=== PATIENT | female | born 1945 | race Caucasian/White ===

== ENCOUNTER → 2017-01-20 | Outpatient (CLI) | payer BC ==
[2016-09-19 11:15] VITALS: BP 119/77
[~2017-01-20] MED LIST: AMIT25TA PO; AMIT75TA PO; ASPI81TA2 PO; BUPR100T11 PO; CARV3.122 PO; CHOL500016 PO; CITA10TA4 PO; CYAN10002 IM; CYCL5TAB PO; GABA-586 PO; HYDR-2672 PO; HYDR-2762 PO; INSULIN; LEVO137T3 PO; LEVO175T29 PO; LEVO750T31; LISI-334 PO; MULT1TAB52 PO; NPH,100V SQ; OXYB5TAB7 PO; SULF1TAB23 PO; TEMA30CA PO; TRIM100T PO
--- NOTE | 2017-01-20 14:49 | KCIC ---
PROCEDURE Renal sonography HISTORY Acute cystitis. COMPARISON December 02, 2014. FINDINGS Due to the patient's very large body habitus, neither kidney could be visualized. The urinary bladder could not be visualized as well. IMPRESSION Neither kidney or the urinary bladder could be visualized due to the patient's very large body habitus. Electronically signed by: Elkin De La Fuente MD (Jan 20, 2017 14:47:49)
== END | disposition home or self-care (01) ==
LOC: KCIC US 13:56
PROVIDERS: ATTEND Urology
DX: N30.00 Acute cystitis without hematuria (principal)
CPT/HCPCS: 76770

== ENCOUNTER → 2017-02-04 | Outpatient (CLI) | payer BC ==
[2016-09-19 11:15] VITALS: BP 119/77
[~2017-02-04] MED LIST changes: -TRIM100T PO; +TRIM100T13 PO
--- NOTE | 2017-02-04 11:00 | RAD ---
Indication: Follow-up lithotripsy. Axial imaging through the abdomen and pelvis was performed without contrast. Comparison is made with prior CT from 07/22/2016. The lung bases are clear. The liver again demonstrates a somewhat nodular contour but no discrete liver mass is identified. The gallbladder is mildly dilated but no stones or wall thickening are identified. The pancreas is atrophic. The spleen is unremarkable. No adrenal mass is identified. The exophytic lesion arising from the lower pole of the right kidney appears stable. Multiple bilateral nonobstructing renal calculi are again noted. Dominant calculus on the right appears similar measuring 13 mm. The calculi on the left also appears similar, largest in the lower pole measuring approximately 8 mm. The previously noted ureteral calculi on the prior exam are no longer present. No hydronephrosis is detected. The aorta is nonaneurysmal. The small and large bowel loops are normal caliber. There is an ostomy in the right lower quadrant. No ascites is seen. Impression: Bilateral nonobstructing nephrolithiasis, similar to prior exam. Previously noted ureteral calculi are no longer present. No hydroureteronephrosis is seen. PQRS Compliance Statement: One or more of the following individualized dose reduction techniques were utilized for this examination: 1. Automated exposure control 2. Adjustment of the mA and/or kV according to patient size 3. Use of iterative reconstruction technique
== END | disposition home or self-care (01) ==
LOC: CT 17:28
PROVIDERS: ATTEND Urology
DX: N20.0 Calculus of kidney (principal)
CPT/HCPCS: 74176

== ENCOUNTER 2018-01-07 12:27 | Day surgery (SDC) | payer BC ==
[~2018-01-07 12:27] MED LIST changes: +0.9 % SODIUM CHLORIDE 50 ML VIAL. IJ; -AMIT25TA PO; -AMIT75TA PO; -ASPI81TA2 PO; -BUPR100T11 PO; -CARV3.122 PO; -CHOL500016 PO; -CITA10TA4 PO; -CYAN10002 IM; -CYCL5TAB PO; -GABA-586 PO; -HYDR-2672 PO; -HYDR-2762 PO; -INSULIN; -LEVO137T3 PO; -LEVO175T29 PO; -LEVO750T31; +LIDOCAINE 1% PF 2 ML VIAL. ID; +LIDOCAINE 2% JELLY 6ML IN APPLICATOR.; -LISI-334 PO; +MORPHINE SULFATE 4 MG/ML DISP.SYRIN. IV; -MULT1TAB52 PO; -NPH,100V SQ; +ONDANSETRON PF 4 MG/2 ML VIAL. IV; -OXYB5TAB7 PO; +PROCHLORPERAZINE 10 MG/2 ML VIAL. IV; -SULF1TAB23 PO; -TEMA30CA PO; -TRIM100T13 PO; +fentaNYL PF VIAL 100 MCG/2 ML VIAL IV
[2018-01-07] MEDS ORDERED: SEVOFLURANE 61 TO 120 MINUTES. IH (13:07)
[2018-01-07] MEDS ORDERED: fentaNYL PF VIAL 100 MCG/2 ML VIAL (13:07)
[2018-01-07] MEDS ORDERED: MIDAZOLAM HCL/PF 2 MG/2 ML VIAL. (13:08)
[2018-01-07] MEDS ORDERED: ONDANSETRON PF 4 MG/2 ML VIAL. (13:09)
[2018-01-07] MEDS ORDERED: DEXAMETHASONE SOD PHOS 20 MG/5 ML VIAL. (13:09)
[2018-01-07] MEDS ORDERED: PROPOFOL 20 ML IV (13:09)
[2018-01-07] MEDS: IV RINGERS,LACTATED 1000ML 1,000 ML IV (14:00)
[2018-01-07] MEDS: IOHEXOL 300 MG/ML 100ML VIAL. (14:02)
[2018-01-07] MEDS: CIPROFLOXACIN 400MG PREMIX 200 ML IV (14:16)
[2018-01-07 15:07] LABS: POC GLUCOSE 108 mg/dL (70-99)
[2018-01-07] MEDS: oxyCODONE/APAP 10/325 1 TAB TABLET PO (15:34)
[2018-01-09 08:04] LABS: POC GLUCOSE 112 mg/dL (70-99)
== END 2018-01-07 16:26 | disposition home or self-care (01) ==
LOC: SURG 12:27
DX: N20.1 Calculus of ureter (principal); E11.9 Type 2 diabetes mellitus without complications; I10 Essential (primary) hypertension; E89.0 Postprocedural hypothyroidism; Z98.890 Other specified postprocedural states
CPT/HCPCS: 52332; 76000; 82962; C1769; C2617; J0744; J1100; J2250; J2405; J2704; J3010; Q9967

== ENCOUNTER → 2018-01-21 | Outpatient (CLI) | payer BC | END | disposition home or self-care (01) | LOC: RAD 13:42 | DX: N20.0 Calculus of kidney (principal); Z87.442 Personal history of urinary calculi | CPT/HCPCS: 74018 ==

== ENCOUNTER 2018-11-01 14:57 | Inpatient (IN) | payer BC ==
[~2018-11-01] VITALS: Ht 172.7 cm; Wt 118.8 kg
[~2018-11-01 14:57] MED LIST changes: -0.9 % SODIUM CHLORIDE 50 ML VIAL. IJ; +A RED PO; +AMIT25TA PO; +AMIT75TA PO; +ASPI-630 PO; +BUPR100T11 PO; +CARV3.1210 PO; +CARV6.2511 PO; +CHOL500016 PO; +CITA10TA4 PO; +CYAN10002 IM; +CYCL5TAB PO; +GABA300C18 PO; +HYDR-2765 PO; +HYDR-2769 PO; +HYDR-3135 PO; +INSULIN; +LEVO137T3 PO; +LEVO150T5 PO; +LEVO175T29 PO; +LEVO750T31; -LIDOCAINE 1% PF 2 ML VIAL. ID; -LIDOCAINE 2% JELLY 6ML IN APPLICATOR.; +LISI-334 PO; -MORPHINE SULFATE 4 MG/ML DISP.SYRIN. IV; +MULT1TAB52 PO; +NPH,100V SQ; +NPH,100V5 SQ; -ONDANSETRON PF 4 MG/2 ML VIAL. IV; +OXYB5TAB7 PO; -PROCHLORPERAZINE 10 MG/2 ML VIAL. IV; +SULF1TAB23 PO; +SULF1TAB24 PO; +TAMS0.4C97 PO; +TEMA30CA PO; +TRIM100T13 PO; -fentaNYL PF VIAL 100 MCG/2 ML VIAL IV
[2018-11-01 16:11] LABS: BILIRUBIN,URINE NEGATIVE (NEG); CLARITY,URINE TURBID; COLOR,URINE YELLOW; NITRITE,URINE NEGATIVE (NEG); PROTEIN,URINE 100 mg/dL (NEG-TRACE); UROBILINOGEN,URINE 0.2 mg/dL (0.2 mg/dL)
[2018-11-01 16:25] LABS: WBC,URINE TNTC /HPF (0-4)
[2018-11-01 16:28] LABS: SQUAMOUS EPITHELIAL CELL,UR OCC /LPF
[2018-11-01 16:33] LABS: AMORPHOUS SEDIMENT,UR PRESENT /HPF; BACTERIA,URINE FEW /HPF (0-FEW)
[2018-11-01 17:13] LABS: BASO # 0.1 x10^3/uL (0.0-0.2); BASO % 1 % (0-3); EOS # 0.2 x10^3/uL (0.0-0.7); EOS % 3 % (0-3); HEMATOCRIT 40.2 % (36.0-47.0); HEMOGLOBIN 13.5 g/dL (12.0-15.5); LYMPH # 1.4 x10^3/uL (1.0-4.8); LYMPH % 26 % (24-48); MEAN CORPUSCULAR HEMOGLOBIN 32 pg (25-35); MEAN CORPUSCULAR HGB CONC 34 g/dL (31-37); MEAN CORPUSCULAR VOLUME 94 fL (79-100); MONO # 0.7 x10^3/uL (0.0-1.1); MONO % 12 % (0-9); NEUT # 3.1 x10^3uL (1.8-7.7); NEUT % 58 % (31-73); PLATELET COUNT 200 x10^3/uL (140-400); RED BLOOD COUNT 4.26 x10^6/uL (3.50-5.40); RED CELL DISTRIBUTION WIDTH 14.2 % (11.5-14.5); WHITE BLOOD COUNT 5.3 x10^3/uL (4.0-11.0)
[2018-11-01 17:19] LABS: CALCIUM 10.9 mg/dL (8.5-10.1); CREATININE 1.4 mg/dL (0.6-1.0); GFR 37.1; POTASSIUM 4.6 mmol/L (3.5-5.1)
[2018-11-01] MEDS ORDERED: CIPROFLOXACIN 400MG PREMIX 200 ML IV ONE (17:45)
[2018-11-01] MEDS ORDERED: PIPERACILLIN/TAZOBACTAM 3.375 GM in IV NORMAL SALINE 50ML 50 ML IV ONE (18:00)
[2018-11-01] MEDS ORDERED: CHOL100016 PO (18:43)
[2018-11-01] MEDS ORDERED: ALPR1TAB6 PO (18:43)
[2018-11-01] MEDS ORDERED: SOLI10TA2 PO (18:43)
[2018-11-01] MEDS ORDERED: TEMAZEPAM 15 MG CAPSULE PO PRN (18:45)
[2018-11-01 19:00] VITALS: BP 115/53
--- NOTE | 2018-11-01 19:55 | PHYS DOC ---
Past Medical History Past Medical History: Diabetes-Type II, Hypertension Additional Past Medical Histor: illeostomy- colitis, sciatica, chronic back pain, neuropathy (RUPERT RANGEL APRN) Past Surgical History: Colectomy, Other Additional Past Surgical Histo: thyroidectomy, illeostomy with revision (RUPERT RANGEL APRN) Alcohol Use: Rarely Drug Use: None (RUPERT RANGEL APRN) Adult General Chief Complaint Chief Complaint: URINARY FREQUENCY [facility] HPI Patient is a 72 year old female, accompanied by her , with complaints of continued dysuria, urinary frequency, and incontinence after finishing macrodantin last week for a UTI. Pt denies any abdominal pain, hematuria, back pain, fever, nausea, vomiting, or diarrhea. Pt states she has a urologist at [facility] who has evaluated her and diagnosed her with a normal sized bladder and a leaky urethra. Pt states she is supposed to have surgery at [facility] in December to correct this problem. Pt also denies any cough, shortness of breath, or swelling in extremities. She reports concern about skin breakdown from the incontinence because in the past she has developed bed sores. Pt has a colostomy bag in the RLQ, she denies any problems with her bag. (RUPERT RANGEL APRN) Review of Systems Review of Systems Constitutional: Denies fever or chills [] HENT: Denies nasal congestion or sore throat [] Respiratory: Denies cough or shortness of breath [] Cardiovascular: No additional information not addressed in HPI [] GI: Denies abdominal pain, nausea, vomiting, or diarrhea [] : See HPI Musculoskeletal: Denies back pain or joint pain [] Integument: See HPI Neurologic: Denies headache, focal weakness or sensory changes [] Endocrine: Denies polydipsia, reports polyuria Complete systems were reviewed and found to be within normal limits, except as documented in this note. (RUPERT RANGEL APRN) Allergies Allergies Allergies Coded Allergies Type Severity Reaction Last Updated Verified cephalexin Adverse Reaction Intermediate VERY ILL-N/V,DIARRHEA ETC. 01/07/18 Yes propoxyphene Adverse Reaction Intermediate nausea and vomiting 01/07/18 Yes (CATRACHO CHRISTINA DO) Physical Exam Physical Exam Constitutional: Well developed, well nourished, no acute distress, non-toxic appearance, obese. [] HENT: Normocephalic, atraumatic, bilateral external ears normal, oropharynx moist, no oral exudates, nose normal. [] Eyes: conjunctiva normal, no discharge. [] Neck: Normal range of motion, no stridor. [] Cardiovascular:Heart rate regular rhythm, no murmur [] Lungs & Thorax: Bilateral breath sounds clear to auscultation [] Abdomen: Bowel sounds normal, soft, no tenderness, no masses, no pulsatile masses. [] Skin: Warm dry with exception of genitalia and beneath pannus; mild erythema without open sores noted in bilateral groins, perineum, and beneath pannus Back: no CVA tenderness. [] Extremities: No cyanosis, no clubbing, ROM intact, no edema. [] Neurologic: Alert and oriented X 3, normal motor function, normal sensory function, no focal deficits noted. [] Psychologic: Affect normal, judgement normal, mood normal. [] (RUPERT RANGEL APRN) Current Patient Data Vital Signs Vital Signs Date Time Temp Pulse Resp B/P (MAP) Pulse Ox O2 Delivery O2 Flow Rate FiO2 11/01/18 15:16 97.8 73 18 157/73 (101) 96 Room Air 97.8 (CHRISTINA,CATRACHO R DO) Lab Values Laboratory Tests Test 11/01/18 15:55 11/01/18 17:00 Urine Collection Type Unknown Urine Color Yellow Urine Clarity Turbid Urine pH 6.0 Urine Specific [place] 1.010 Urine Protein 100 mg/dL (NEG-TRACE) Urine Glucose (UA) Negative mg/dL (NEG) Urine Ketones (Stick) Negative mg/dL (NEG) Urine Blood Large (NEG) Urine Nitrite Negative (NEG) Urine Bilirubin Negative (NEG) Urine Urobilinogen Dipstick 0.2 mg/dL (0.2 mg/dL) Urine Leukocyte Esterase Large (NEG) Urine RBC /HPF (0-2) Urine WBC Tntc /HPF (0-4) Urine Squamous Epithelial Cells Occ /LPF Urine Amorphous Sediment Present /HPF Urine Bacteria Few /HPF (0-FEW) White Blood Count 5.3 x10^3/uL (4.0-11.0) Red Blood Count 4.26 x10^6/uL (3.50-5.40) Hemoglobin 13.5 g/dL (12.0-15.5) Hematocrit 40.2 % (36.0-47.0) Mean Corpuscular Volume 94 fL (79-100) Mean Corpuscular Hemoglobin 32 pg (25-35) Mean Corpuscular Hemoglobin Concent 34 g/dL (31-37) Red Cell Distribution Width 14.2 % (11.5-14.5) Platelet Count 200 x10^3/uL (140-400) Neutrophils (%) (Auto) 58 % (31-73) Lymphocytes (%) (Auto) 26 % (24-48) Monocytes (%) (Auto) 12 % (0-9) H Eosinophils (%) (Auto) 3 % (0-3) Basophils (%) (Auto) 1 % (0-3) Neutrophils # (Auto) 3.1 x10^3uL (1.8-7.7) Lymphocytes # (Auto) 1.4 x10^3/uL (1.0-4.8) Monocytes # (Auto) 0.7 x10^3/uL (0.0-1.1) Eosinophils # (Auto) 0.2 x10^3/uL (0.0-0.7) Basophils # (Auto) 0.1 x10^3/uL (0.0-0.2) Sodium Level 140 mmol/L (136-145) Potassium Level 4.6 mmol/L (3.5-5.1) Chloride Level 104 mmol/L (98-107) Carbon Dioxide Level 25 mmol/L (21-32) Anion Gap 11 (6-14) Blood Urea Nitrogen 21 mg/dL (7-20) H Creatinine 1.4 mg/dL (0.6-1.0) H Estimated GFR (Cockcroft-Gault) 37.1 Glucose Level 115 mg/dL (70-99) H Calcium Level 10.9 mg/dL (8.5-10.1) H Laboratory Tests 11/01/18 17:00 Laboratory Tests 11/01/18 17:00 (CATRACHO CHRISTINA DO) EKG EKG [] (RUPERT RANGEL APRN) Radiology/Procedures Radiology/Procedures [] (RUPERT RANGEL APRN) Course & Med Decision Making Course & Med Decision Making Pertinent Labs and Imaging studies reviewed. (See chart for details) Dx: UTI, chronic kidney disease CBC - BMP 11/01/18 17:00 Zosyn 3.375 gm was ordered in the ER. Pt was advised of continued UTI that failed to respond to outpatient treatment and need for hospital admission. Pt verbalized agreement with POC 1702- Spoke with Dr. Vyas and advised of patient findings and need for admission. Will start antibiotics and admit patient to med/surg bed. [] (RUPERT RANGEL APRN) Dragon Disclaimer Dragon Disclaimer This electronic medical record was generated, in whole or in part, using a voice recognition dictation system. (RUPERT RANGEL APRN) Departure Departure Impression: Primary Impression: UTI (urinary tract infection) Additional Impression: Chronic kidney disease, stage 3 Disposition: ADMITTED INPATIENT Admitting Physician: Miguel Vyas (RUPERT RANGEL APRN) Condition: STABLE Referrals: TANA JACOBS MD (PCP) Scripts Sulfamethoxazole/Trimethoprim (BACTRIM DS TABLET) 1 Each Tablet 1 TAB PO BID for UTI, #14 TAB Prov: MIGUEL VYAS MD 11/02/18 Attending Signature Attending Signature I have reviewed the PA/SOLAR INSTALLER PV's note and plan of care. I was available for consultation as needed during the patient's visit in the emergency department. I agree with the clinical impression, plan, and disposition. (CATRACHO CHRISTINA DO) Problem Qualifiers Primary Impression: UTI (urinary tract infection) Urinary tract infection type: site unspecified Hematuria presence: with hematuria Qualified Codes: N39.0 - Urinary tract infection, site not specified ; R31.9 - Hematuria, unspecified RUPERT RANGEL APRN Nov 01, 2018 19:55 CATRACHO CHRISTINA DO Nov 03, 2018 05:09
[2018-11-01] MEDS: ALPRAZolam 1 MG TABLET PO SCH (21:16)
[2018-11-01] MEDS: OXYBUTYNIN CHLORIDE 5 MG TABLET PO SCH (21:16)
[2018-11-01 23:00] VITALS: BP 132/66
[2018-11-02 03:00] VITALS: BP 127/56
[2018-11-02] MEDS ORDERED: ACETAMINOPHEN 325 MG TABLET. PO PRN (03:30)
[2018-11-02] MEDS ORDERED: HYDROcodone/APAP 5/325MG 1 TAB TABLET PO PRN (03:30)
[2018-11-02] MEDS ORDERED: LEVOTHYROXINE 150 MCG TABLET PO SCH (06:00)
[2018-11-02 06:34] LABS: CALCIUM 9.6 mg/dL (8.5-10.1); CREATININE 1.6 mg/dL (0.6-1.0); GFR 31.8; POTASSIUM 4.2 mmol/L (3.5-5.1)
[2018-11-02 07:00] VITALS: BP 126/67
[2018-11-02] MEDS ORDERED: INSULIN GLARGINE 300 UNITS/3 ML INSULN.PEN. SQ SCH (07:30)
[2018-11-02] MEDS ORDERED: CARVEDILOL 6.25 MG TABLET. PO SCH (08:00)
--- NOTE | 2018-11-02 08:10 | PDOC1 ---
H & P. HPI: Ms. Hough is a 72-year-old female with a past medical history of type 2 diabetes, chronic kidney disease stage III, hypertension, hypothyroidism, recurrent UTI, kidney stones, lumbar spinal stenosis, who presented to the emergency room yesterday for concern of continued UTI despite recent treatment with antibiotics. She was reportedly going to have an appointment with urology at today but decided to come to [place] [facility] instead. She complains of dysuria, urinary frequency, and incontinence which was reportedly after a recent course of antibiotics, but when pt was asked again, she states she took 5 days of macrodantin over 4 weeks ago, most recently. Pt denies any abdominal pain, hematuria, back pain, fever, nausea, vomiting, or diarrhea. ROS: Constitutional: Denies fever, fatigue, chills HEENT: Denies sore throat, vision changes Cardio: Denies chest pain, dyspnea with exertion, syncope, palpitations, edema Pulmonary: Denies shortness of breath, cough, wheezing GI: Denies nausea, vomiting, diarrhea, constipation : Admits dysuria, frequency, urgency, incontinence Skin: Denies new lesions Neuro: Denies weakness, paresthesias PMH: As above. FAMILY HX: Father from heart attack, hypertension, emphysema. Mother had heart disease. Brother had a stroke. SOCIAL HX: Nonsmoker, no significant alcohol use. No drug use. SURGICAL HX: Oophorectomy, multiple hernia surgeries, ileostomy, appendectomy, tonsillectomy. MEDS: Reviewed and reconciled ALLERGIES: Reviewed PE: Alert, oriented, no acute distress EOMI, sclera non-icteric Neck supple RRR, no murmur CTAB, no wheezes, crackles or rhonchi Soft, NT, ND, normal bowel sounds, s/p ileostomy No edema, cyanosis. Normal capillary refill. Calm, cooperative, mood/affect within normal limits ASSESSMENT & PLAN: Urinary tract infection with hematuria, uncomplicated Chronic kidney disease stage III at baseline Type 2 diabetes Hypertension Hypothyroidism H/o Kidney stones Lumbar spinal stenosis OK to dc home with PO antibiotics, change if indicated per urine culture f/u soon with urology f/u with myself or Dr. Branch in ~10 days MIGUEL LEONE MD Nov 02, 2018 08:10
[2018-11-02] MEDS ORDERED: PIPERACILLIN/TAZOBACTAM 3.375 GM in IV NORMAL SALINE 50ML 50 ML IV SCH (08:30)
[2018-11-02] MEDS: ALPRAZolam 1 MG TABLET PO SCH (08:37)
[2018-11-02] MEDS: OXYBUTYNIN CHLORIDE 5 MG TABLET PO SCH (08:37)
[2018-11-02] MEDS ORDERED: CHOLECALCIFEROL (VITAMIN D3) 1,000 UNIT TABLET PO SCH (09:00)
[2018-11-02] MEDS ORDERED: LACTOBACILLUS RHAMNOSUS GG 1 CAPSULE. PO SCH (09:00)
[2018-11-02] MEDS ORDERED: ASPIRIN CHEWABLE 81 MG TABLET. PO SCH (09:00)
[2018-11-02] MEDS ORDERED: MULTIVITAMIN with MINERAL TABLET. PO SCH (09:00)
[2018-11-02] MEDS ORDERED: SULF1TAB24 PO (09:06)
[2018-11-02 11:00] VITALS: BP 141/51
[2018-12-01] MEDS ORDERED: CYANOCOBALAMIN (VITAMIN B-12) 1,000 MCG/ML VIAL IM SCH (09:00)
== END 2018-11-02 11:15 | disposition home or self-care (01) | DRG 690 ==
LOC: ER 14:57 → 5 NORTH 17:02
PROVIDERS: ADMIT Family Medicine; ATTEND Family Medicine
DX: N39.0 Urinary tract infection, site not specified (principal); I10 Essential (primary) hypertension; G89.29 Other chronic pain; R31.9 Hematuria, unspecified; E11.22 Type 2 diabetes mellitus with diabetic chronic kidney disease; E89.0 Postprocedural hypothyroidism; E11.40 Type 2 diabetes mellitus with diabetic neuropathy, unspecified; M48.061 Spinal stenosis, lumbar region without neurogenic claudication; I12.9 Hypertensive chronic kidney disease with stage 1 through stage 4 chronic kidney disease, or unspecified chronic kidney disease; N18.3 Chronic kidney disease, stage 3 (moderate); Z93.3 Colostomy status; Z79.4 Long term (current) use of insulin; Z88.8 Allergy status to other drugs, medicaments and biological substances; Z87.442 Personal history of urinary calculi
CPT/HCPCS: 36415; 51702; 80048; 81001; 82962; 85025; 87086; 90471; 90756; J1815; J2543; 99285-25; G0378; Q2035

== ENCOUNTER 2018-11-07 12:49 | Inpatient (IN) | payer BC ==
[~2018-11-07] VITALS: Ht 172.7 cm; Wt 124.3 kg
[~2018-11-07 12:49] MED LIST changes: +ALPR1TAB6 PO; +CHOL100016 PO; +SOLI10TA2 PO
[2018-11-07 13:32] LABS: BILIRUBIN,URINE NEGATIVE (NEG); CLARITY,URINE CLOUDY; COLOR,URINE ORANGE; NITRITE,URINE POSITIVE (NEG); PH,URINE 5.5; PROTEIN,URINE 100 mg/dL (NEG-TRACE)
[2018-11-07] MEDS ORDERED: IV NORMAL SALINE 1000ML BAG 1,000 ML IV SCH (13:41)
[2018-11-07] MEDS ORDERED: ONDANSETRON PF 4 MG/2 ML VIAL. IV ONE (13:45)
[2018-11-07] MEDS ORDERED: HYDROmorphone 2 MG/ML VIAL IV/SQ PRN (13:45)
[2018-11-07 13:46] LABS: SQUAMOUS EPITHELIAL CELL,UR OCC /LPF
[2018-11-07 13:47] LABS: BACTERIA,URINE MODERATE /HPF (0-FEW); WBC,URINE >40 /HPF (0-4)
[2018-11-07 13:50] LABS: BASO # 0.1 x10^3/uL (0.0-0.2); BASO % 1 % (0-3); EOS # 0.2 x10^3/uL (0.0-0.7); EOS % 3 % (0-3); HEMATOCRIT 41.5 % (36.0-47.0); HEMOGLOBIN 13.7 g/dL (12.0-15.5); LYMPH # 1.2 x10^3/uL (1.0-4.8); LYMPH % 17 % (24-48); MEAN CORPUSCULAR HEMOGLOBIN 32 pg (25-35); MEAN CORPUSCULAR HGB CONC 33 g/dL (31-37); MEAN CORPUSCULAR VOLUME 96 fL (79-100); MONO # 0.8 x10^3/uL (0.0-1.1); MONO % 11 % (0-9); NEUT # 4.7 x10^3uL (1.8-7.7); NEUT % 68 % (31-73); PLATELET COUNT 219 x10^3/uL (140-400); RED BLOOD COUNT 4.33 x10^6/uL (3.50-5.40); RED CELL DISTRIBUTION WIDTH 14.1 % (11.5-14.5)
--- NOTE | 2018-11-07 13:54 | PHYS DOC ---
Past Medical History Past Medical History: Diabetes-Type II, Hypertension, UTI, Other Additional Past Medical Histor: colitis, sciatica, chronic back pain, neuropathy Past Surgical History: Colectomy, Other Additional Past Surgical Histo: thyroidectomy, illeostomy with revision Alcohol Use: Rarely Drug Use: None Adult General Chief Complaint Chief Complaint: FLANK PAIN [facility] HPI Patient is a 72-year-old female who presents with complaint of left-sided flank pain that started yesterday. Patient has a long history of kidney stones. She states that she has had a history of pain in this area before and states that she was told that she had a stone that was bobbing up and down and blocking her ureter intermittently. She states the pain has been more constant however. She rates pain currently at an 8 out of 10 in indicates that she has had some nausea but no vomiting. Patient states that nothing is improving the pain. Review of Systems Review of Systems Constitutional: Denies fever or chills [] Respiratory: Denies cough or shortness of breath [] Cardiovascular: No additional information not addressed in HPI [] GI: Denies abdominal pain, nausea, vomiting or diarrhea [] : Positive left flank pain [] Musculoskeletal: Complains of left-sided back pain [] All other systems were reviewed and found to be within normal limits, except as documented in this note. Current Medications Current Medications Current Medications Medications (Trade) Dose Ordered Sig/Evan Start Time Stop Time Status Last Admin Dose Admin Hydromorphone HCl (Dilaudid) 0.5 mg PRN Q15MIN PRN 11/07/18 13:45 11/08/18 13:44 11/07/18 14:23 0.5 MG Ondansetron HCl (Zofran) 4 mg 1X ONCE 11/07/18 13:45 11/07/18 13:46 DC 11/07/18 14:21 4 MG Sodium Chloride 1,000 ml @ 100 mls/hr Q10H 11/07/18 13:41 11/07/18 23:40 11/07/18 14:20 100 MLS/HR Allergies Allergies Allergies Coded Allergies Type Severity Reaction Last Updated Verified cephalexin Adverse Reaction Intermediate VERY ILL-N/V,DIARRHEA ETC. 01/07/18 Yes propoxyphene Adverse Reaction Intermediate nausea and vomiting 01/07/18 Yes Physical Exam Physical Exam Constitutional: Well developed, well nourished, no acute distress, non-toxic appearance. [] HENT: Normocephalic, atraumatic, bilateral external ears normal, oropharynx moist, no oral exudates, nose normal. [] Eyes: PERRLA, EOMI, conjunctiva normal. [] Neck: Normal range of motion, no tenderness, supple, no stridor. [] Cardiovascular: Regular rate and rhythm [] Lungs & Thorax: Bilateral breath sounds clear to auscultation [] Abdomen: Bowel sounds normal, soft, no tenderness. [] Skin: Warm, dry, no erythema, no rash. [] Back: Positive left sided CVA tenderness. [] Extremities: No tenderness, no cyanosis, no clubbing, ROM intact. [] Neurologic: Alert and oriented, no focal deficits noted. [] Current Patient Data Vital Signs Vital Signs Date Time Temp Pulse Resp B/P (MAP) Pulse Ox O2 Delivery O2 Flow Rate FiO2 11/07/18 16:30 74 18 93 Room Air 11/07/18 12:49 98.0 98.0 Lab Values Laboratory Tests Test 11/07/18 13:03 11/07/18 13:15 White Blood Count 7.0 x10^3/uL (4.0-11.0) Red Blood Count 4.33 x10^6/uL (3.50-5.40) Hemoglobin 13.7 g/dL (12.0-15.5) Hematocrit 41.5 % (36.0-47.0) Mean Corpuscular Volume 96 fL (79-100) Mean Corpuscular Hemoglobin 32 pg (25-35) Mean Corpuscular Hemoglobin Concent 33 g/dL (31-37) Red Cell Distribution Width 14.1 % (11.5-14.5) Platelet Count 219 x10^3/uL (140-400) Neutrophils (%) (Auto) 68 % (31-73) Lymphocytes (%) (Auto) 17 % (24-48) L Monocytes (%) (Auto) 11 % (0-9) H Eosinophils (%) (Auto) 3 % (0-3) Basophils (%) (Auto) 1 % (0-3) Neutrophils # (Auto) 4.7 x10^3uL (1.8-7.7) Lymphocytes # (Auto) 1.2 x10^3/uL (1.0-4.8) Monocytes # (Auto) 0.8 x10^3/uL (0.0-1.1) Eosinophils # (Auto) 0.2 x10^3/uL (0.0-0.7) Basophils # (Auto) 0.1 x10^3/uL (0.0-0.2) Sodium Level 137 mmol/L (136-145) Potassium Level 4.4 mmol/L (3.5-5.1) Chloride Level 105 mmol/L (98-107) Carbon Dioxide Level 25 mmol/L (21-32) Anion Gap 7 (6-14) Blood Urea Nitrogen 24 mg/dL (7-20) H Creatinine 2.4 mg/dL (0.6-1.0) H Estimated GFR (Cockcroft-Gault) 19.9 BUN/Creatinine Ratio 10 (6-20) Glucose Level 119 mg/dL (70-99) H Calcium Level 10.2 mg/dL (8.5-10.1) H Total Bilirubin 0.3 mg/dL (0.2-1.0) Aspartate Amino Transferase (AST) 16 U/L (15-37) Alanine Aminotransferase (ALT) 19 U/L (14-59) Alkaline Phosphatase 84 U/L (46-116) Total Protein 7.0 g/dL (6.4-8.2) Albumin 3.2 g/dL (3.4-5.0) L Albumin/Globulin Ratio 0.8 (1.0-1.7) L Urine Collection Type U cath Urine Color [place] Urine Clarity Cloudy Urine pH 5.5 Urine Specific [place] 1.025 Urine Protein 100 mg/dL (NEG-TRACE) Urine Glucose (UA) Negative mg/dL (NEG) Urine Ketones (Stick) Negative mg/dL (NEG) Urine Blood Large (NEG) Urine Nitrite Positive (NEG) Urine Bilirubin Negative (NEG) Urine Urobilinogen Dipstick 1.0 mg/dL (0.2 mg/dL) Urine Leukocyte Esterase Large (NEG) Urine RBC 6-10 /HPF (0-2) Urine WBC >40 /HPF (0-4) Urine Squamous Epithelial Cells Occ /LPF Urine Bacteria Moderate /HPF (0-FEW) Laboratory Tests 11/07/18 13:03 Laboratory Tests 11/07/18 13:03 EKG EKG [] Radiology/Procedures Radiology/Procedures [] Impressions: CT ABDOMEN PELVIS WO CONTRAST Indication: Left flank pain. Exposure: One or more of the following individualized dose reduction techniques were utilized for this examination: 1. Automated exposure control 2. Adjustment of the mA and/or kV according to patient size 3. Use of iterative reconstruction technique. Comparison: February 04, 2017: There is image degradation due to artifact from body habitus. Evaluation of solid viscera, bowel and GI tract is limited without contrast. Lung bases appear clear. The liver and spleen appear grossly unremarkable. Pancreas appears atrophic, otherwise unremarkable. There are right renal calculi. No evidence of right hydronephrosis. Left kidney is small with cortical thinning. There is a calculus in the lower pole left kidney. There is left hydronephrosis and ureteric dilatation. No definite obstructive calcified stone in the left ureter, could be due to a recently passed calculus or distal esophageal stricture. There is stranding around the left kidney, suggesting inflammation or obstruction. No calcified gallstone. No evidence of adrenal mass. There is a small lesion arising from the right kidney, appears stable from the prior exam. The aorta is nonaneurysmal, mildly calcified. No significant lymph node enlargement. There are small retroperitoneal and mesenteric lymph nodes are identified. No evidence of bowel obstruction. Urinary bladder is not well distended, difficult to evaluate. Severe degenerative change at the lumbar spine with stenosis. There is some dehiscence of the anterior abdominal wall containing loops of small bowel. There is a right lower quadrant ostomy. IMPRESSION: 1. Moderate left hydronephrosis and hydroureter. No definite calcified stone is seen, findings could indicate a distal stricture, or a recently passed calculus. There is left perinephric stranding as can be seen with inflammation or obstruction. 2. Bilateral renal calculi. Electronically signed by: Juve Zapata MD (11/07/2018 2:14 PM) [facility] Course & Med Decision Making Course & Med Decision Making Pertinent Labs and Imaging studies reviewed. (See chart for details) [] Dragon Disclaimer Dragon Disclaimer This electronic medical record was generated, in whole or in part, using a voice recognition dictation system. Departure Departure Impression: Primary Impression: Pyelonephritis Additional Impressions: Acute kidney injury Hydroureter on left Disposition: 09 ADMITTED INPATIENT Admitting Physician: Tana Branch Condition: IMPROVED Referrals: TANA BRANCH MD (PCP) Problem Qualifiers CARLOS RODRIGUEZ Jr. DO Nov 07, 2018 13:54
[2018-11-07 13:58] LABS: CALCIUM 10.2 mg/dL (8.5-10.1); CREATININE 2.4 mg/dL (0.6-1.0); GFR 19.9; POTASSIUM 4.4 mmol/L (3.5-5.1)
[2018-11-07 14:04] LABS: ALBUMIN 3.2 g/dL (3.4-5.0); ALBUMIN/GLOBULIN RATIO 0.8 (1.0-1.7); TOTAL BILIRUBIN 0.3 mg/dL (0.2-1.0)
--- NOTE | 2018-11-07 14:19 | RAD ---
CT ABDOMEN PELVIS WO CONTRAST Indication: Left flank pain. Exposure: One or more of the following individualized dose reduction techniques were utilized for this examination: 1. Automated exposure control 2. Adjustment of the mA and/or kV according to patient size 3. Use of iterative reconstruction technique. Comparison: February 04, 2017: There is image degradation due to artifact from body habitus. Evaluation of solid viscera, bowel and GI tract is limited without contrast. Lung bases appear clear. The liver and spleen appear grossly unremarkable. Pancreas appears atrophic, otherwise unremarkable. There are right renal calculi. No evidence of right hydronephrosis. Left kidney is small with cortical thinning. There is a calculus in the lower pole left kidney. There is left hydronephrosis and ureteric dilatation. No definite obstructive calcified stone in the left ureter, could be due to a recently passed calculus or distal esophageal stricture. There is stranding around the left kidney, suggesting inflammation or obstruction. No calcified gallstone. No evidence of adrenal mass. There is a small lesion arising from the right kidney, appears stable from the prior exam. The aorta is nonaneurysmal, mildly calcified. No significant lymph node enlargement. There are small retroperitoneal and mesenteric lymph nodes are identified. No evidence of bowel obstruction. Urinary bladder is not well distended, difficult to evaluate. Severe degenerative change at the lumbar spine with stenosis. There is some dehiscence of the anterior abdominal wall containing loops of small bowel. There is a right lower quadrant ostomy. IMPRESSION: 1. Moderate left hydronephrosis and hydroureter. No definite calcified stone is seen, findings could indicate a distal stricture, or a recently passed calculus. There is left perinephric stranding as can be seen with inflammation or obstruction. 2. Bilateral renal calculi. Electronically signed by: Juve Zapata MD (11/07/2018 2:14 PM) [facility]
[2018-11-07] MEDS ORDERED: ONDANSETRON PF 4 MG/2 ML VIAL. IV PRN ×2 (17:00→21:30)
[2018-11-07] MEDS: IV NORMAL SALINE 1000ML BAG 1,000 ML IV SCH (18:14)
[2018-11-07 18:24] VITALS: BP 153/57
[2018-11-07] MEDS ORDERED: TEMAZEPAM 15 MG CAPSULE PO PRN (19:45)
[2018-11-07 19:58] VITALS: BP 121/77
[2018-11-07] MEDS: OXYBUTYNIN CHLORIDE 5 MG TABLET PO SCH (20:41)
[2018-11-07] MEDS: SMZ/TMP 800/160MG TABLET. PO SCH (20:41)
[2018-11-07] MEDS: ALPRAZolam 1 MG TABLET PO SCH (20:41)
[2018-11-07] MEDS: CARVEDILOL 6.25 MG TABLET. PO SCH (20:41)
[2018-11-07] MEDS: INSULIN GLARGINE 300 UNITS/3 ML INSULN.PEN. SQ SCH (20:45)
[2018-11-07] MEDS ORDERED: ACETAMINOPHEN 325 MG TABLET. PO PRN (21:30)
[2018-11-07 22:33] VITALS: BP 129/87
[2018-11-08] MEDS: fentaNYL PF VIAL 100 MCG/2 ML VIAL IV PRN ×5 (00:33→19:42)
[2018-11-08] MEDS: IV NORMAL SALINE 1000ML BAG 1,000 ML IV SCH ×2 (00:34→08:55)
[2018-11-08 03:00] VITALS: BP 154/65
[2018-11-08 04:31] LABS: BASO # 0.1 x10^3/uL (0.0-0.2); BASO % 1 % (0-3); EOS # 0.1 x10^3/uL (0.0-0.7); EOS % 2 % (0-3); HEMATOCRIT 36.4 % (36.0-47.0); HEMOGLOBIN 12.2 g/dL (12.0-15.5); LYMPH # 0.9 x10^3/uL (1.0-4.8); LYMPH % 12 % (24-48); MEAN CORPUSCULAR HEMOGLOBIN 32 pg (25-35); MEAN CORPUSCULAR HGB CONC 34 g/dL (31-37); MEAN CORPUSCULAR VOLUME 95 fL (79-100); MONO # 1.1 x10^3/uL (0.0-1.1); MONO % 14 % (0-9); NEUT # 5.6 x10^3uL (1.8-7.7); NEUT % 72 % (31-73); PLATELET COUNT 198 x10^3/uL (140-400); RED BLOOD COUNT 3.83 x10^6/uL (3.50-5.40); RED CELL DISTRIBUTION WIDTH 14.6 % (11.5-14.5); WHITE BLOOD COUNT 7.8 x10^3/uL (4.0-11.0)
[2018-11-08 04:40] LABS: CALCIUM 9.5 mg/dL (8.5-10.1); CREATININE 2.3 mg/dL (0.6-1.0); GFR 20.9; POTASSIUM 4.4 mmol/L (3.5-5.1)
[2018-11-08] MEDS: LEVOTHYROXINE 150 MCG TABLET PO SCH (05:23)
[2018-11-08 07:00] VITALS: BP 130/53
[2018-11-08] MEDS: ALPRAZolam 1 MG TABLET PO SCH ×2 (08:53→21:18)
[2018-11-08] MEDS: ASPIRIN CHEWABLE 81 MG TABLET. PO SCH (08:53)
[2018-11-08] MEDS: CARVEDILOL 6.25 MG TABLET. PO SCH ×2 (08:54→17:40)
[2018-11-08] MEDS: SMZ/TMP 800/160MG TABLET. PO SCH (08:54)
[2018-11-08] MEDS: OXYBUTYNIN CHLORIDE 5 MG TABLET PO SCH ×3 (08:54→21:18)
[2018-11-08] MEDS: CHOLECALCIFEROL (VITAMIN D3) 1,000 UNIT TABLET PO SCH (08:54)
[2018-11-08] MEDS: MULTIVITAMIN with MINERAL TABLET. PO SCH (08:54)
[2018-11-08] MEDS: LACTOBACILLUS RHAMNOSUS GG 1 CAPSULE. PO SCH ×2 (08:56→21:18)
[2018-11-08] MEDS: INSULIN GLARGINE 300 UNITS/3 ML INSULN.PEN. SQ SCH ×2 (09:02→21:21)
[2018-11-08 10:51] VITALS: BP 117/63
[2018-11-08 14:41] VITALS: BP 128/64
--- NOTE | 2018-11-08 14:56 | HP ---
ADMIT DATE: 11/07/2018 CHIEF COMPLAINT AND HISTORY OF PRESENT ILLNESS: This 72-year-old white female, a patient of Dr. Isael Branch, admitted through the Emergency Room with a day or two of left flank pain. She has a long history of kidney stones, had multiple urine infections over the years related to this. The pain had become more constant at this point in time, however, was much worse. She related her pain as an 8-9/10 and had some nausea with it, but no vomiting and nothing she was doing at home was relieving the pain. She was felt to have pyelonephritis after workup and admitted for the same. PAST MEDICAL HISTORY: Remarkable for urinary tract infections, hypertension, diabetes, sciatica, chronic back pain, neuropathy, colitis. PAST SURGICAL HISTORY: She has had a colectomy with revision x 3, a thyroidectomy. MEDICATIONS: Brought with the patient, listed on the computer and have been addressed. ALLERGIES: SHE IS ALLERGIC TO CEPHALEXIN AND PROPOXYPHENE. SOCIAL HISTORY: Noncontributory. FAMILY HISTORY: Noncontributory. REVIEW OF SYSTEMS: Remarkable for her denying any fevers or chills. She does have the severe pain. She denies any cough, shortness of breath, palpitations, chest pain, has had nausea, but no vomiting and denies any change in stools. LABORATORY DATA: Workup in the Emergency Room included an abdominal and pelvis CT with findings there showing moderate left hydronephrosis and hydroureter with no definite calcified stone seen, findings felt could be due to a distal stricture or recently passed stone. There was left perinephric stranding. This can be seen with inflammation or obstruction. Bilateral renal calculi were noted. White count on admission was 7000 with normal differential. BUN of 24, creatinine 2.4, and upon questioning with her, she feels like her creatinine is usually down in the 1's somewhere and has never been told necessarily that her kidneys are not functioning appropriately. She has nitrite and leukocyte esterase positive urine with 6-10 red blood cells and white cells greater than 40, consistent with a urinary tract infection. IMPRESSION: 1. Left pyelonephritis. 2. Other problems listed above. PLAN: The patient has been admitted. IV antibiotics will be continued. Renal function will be followed and the patient will be monitored, managed and treated appropriately. IRAIDA SILVERMAN MD DR: Hannah JOB#: [id number] / [id number]
[2018-11-08 19:00] VITALS: BP 133/54
[2018-11-08] MEDS ORDERED: KETOROLAC 15 MG/ML VIAL. IV PRN (19:30)
--- NOTE | 2018-11-08 20:53 | PDOC2 ---
UROLOGY CONSULT Date of Consult Date of Consult DATE: 11/08/18 TIME: 20:42 Reason for Consult Reason for Consult: UTI, left hydronephrosis Source Source: Chart review, Patient History of Present Illness Reason for Visit: 72 yo female with severe left flank pain, admitted through ER 11/07/18. CT 11/07/18 showed left hydro and dilation of left ureter down to a few cm above left UVJ with abrupt transition point, no stone visible on my view. Right kidney stone without obstruction noted. Now left flank pain has most resolved, she is feeling much better. Baseline creatinine is approx 1.4, was 1.4 last week, now 2.3. Underwent left ureteroscopy in spring [address] Gay for presumed ureter stone. 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 Most recently has been getting urologic care from Dr. Jeffries at , primarily treating OAB , urge incontinence. UA this admission consistent with UTI. Past Medical History Cardiovascular: HTN Pulmonary: Pulmonary embolus CENTRAL NERVOUS SYSTEM: Other GI: Inflam bowel disease Heme/Onc: No pertinent hx Hepatobiliary: No pertinent hx Psych: No pertinent hx Musculoskeletal: Osteoarthritis Rheumatologic: No pertinent hx Infectious disease: No pertinent hx Renal/: Chronic renal insuff, Urinary Incontinence, Other Endocrine: Diabetes, Hypothyroidism Past Surgical History Past Surgical History: Appendectomy, Tonsillectomy, Hysterectomy, Colectomy, Other Family History Family History: Heart Disease, Stroke Social History ALCOHOL: none Drugs: None Lives: with Family Current Medications Current Medications Current Medications Acetaminophen (Tylenol) 650 mg PRN Q6HRS PRN PO MILD PAIN / TEMP; Start at 21:30 Alprazolam (Xanax) 1 mg BID PO Last administered on 11/08/18at 08:53; Start 11/07 at 21:00 Aspirin (Children'S Aspirin) 81 mg DAILY PO Last administered on 11/08/18at 08: 53; Start 11/08/18 at 09:00 Carvedilol (Coreg) 6.25 mg BIDWMEALS PO Last administered on 11/08/18at 17:40; Start 11/07/18 at 21:00 Cyanocobalamin (Vitamin B-12) 1,000 mcg QMONTH IM ; Start 12/07/18 at 09:00 Fentanyl Citrate (Fentanyl 2ml Vial) 25 mcg PRN Q4HRS PRN IV MODERATE-SEVERE PAIN Last administered on 11/08/18 19:42; Start 11/08/18 at 19:30 Insulin Glargine (Lantus) 40 units BID SQ Last administered on 11/08/18 09:02 ; Start 11/07/18 at 21:00 Ketorolac Tromethamine (Toradol 15mg Vial) 15 mg PRN Q8HRS PRN IV MILD PAIN; Start 11/08/18 at 19:30; Stop 11/13/18 at 19:29 Lactobacillus Rhamnosus (Culturelle) 1 cap BID PO Last administered on 08:56; Start 11/08/18 at 09:00 Levofloxacin/ Dextrose 50 ml @ 50 mls/hr Q24H IV Last administered on 17:40; Start 11/08/18 at 18:00 Levothyroxine Sodium (Synthroid) 150 mcg DAILY06 PO Last administered on 05:23; Start 11/08/18 at 06:00 Multivitamins (Thera M Plus) 1 tab DAILY PO Last administered on 11/08/18 08: 54; Start 11/08/18 at 09:00 Ondansetron HCl (Zofran) 4 mg PRN Q6HRS PRN IV NAUSEA/VOMITING; Start 11/07/18 at 21:30 Oxybutynin Chloride (Ditropan) 5 mg [id number] PO Last administered on 11/08/18 14 :26; Start 11/07/18 at 21:00 Trimethoprim/ Sulfamethoxazole (Bactrim Ds) 0.5 tab BID PO Last administered on 11/08/18 08:54; Start 11/07/18 at 21:00; Stop 11/08/18 at 14:47; Status DC Vitamin D (Vitamin D3) 500 unit DAILY PO Last administered on 11/08/18 08:54; Start 11/08/18 at 09:00 Allergies Allergies: Coded Allergies: cephalexin (Verified Adverse Reaction, Intermediate, VERY ILL-N/V, DIARRHEA ETC., 01/07/18) STATED IT JUST MAKES ME FEEL SICK propoxyphene (Verified Adverse Reaction, Intermediate, nausea and vomiting , 01/07/18) ROS Review Of Systems: Except as noted in HPI: CONSTITUTIONAL: No fever or chills EYES: No recent changes SKIN: No rash or itching CARDIOVASCULAR: No chest pain, syncope, palpitations, or edema RESPIRATORY: No SOB or cough GASTROINTESTINAL: No nausea, vomiting or abdominal pain NEUROLOGICAL: No headaches or weakness ENDOCRINE: No cold or heat intolerance GENITOURINARY: No urgency or frequency of urination MUSCULOSKELETAL: No back pain or joint pain LYMPHATICS: No enlarged lymph nodes PSYCHIATRIC: No anxiety or depression Physical Exam Physical Exam: General: Pleasant, no acute distress, well groomed Eyes: conjunctiva anicteric, eyes full range of motion ENT: moist oral mucosa, normal dentition Neck: Trachea midline, no masses Respiratory: unlabored breathing, not using accessory muscles, no crackles or wheezes Cardiovascular: Regular rate and rhythm, no peripheral edema Abdomen: nontender, nondistended, no hepatosplenomegaly, no masses Skin: no rashes or skin lesions on visualized skin Psych: normal mood, affect. Alert and oriented x 3. Back: No CVA tenderness. Vitals VITALS Vital Signs Date Time Temp Pulse Resp B/P (MAP) Pulse Ox O2 Delivery O2 Flow Rate FiO2 11/08/18 19:42 20 Room Air 11/08/18 17:40 69 128/64 11/08/18 16:09 95 11/08/18 14:41 97.9 97.9 Labs Labs Laboratory Tests Test 11/07/18 13:03 11/07/18 13:15 11/07/18 20:07 11/08/18 03:50 White Blood Count 7.0 x10^3/uL (4.0-11.0) 7.8 x10^3/uL (4.0-11.0) Red Blood Count 4.33 x10^6/uL (3.50-5.40) 3.83 x10^6/uL (3.50-5.40) Hemoglobin 13.7 g/dL (12.0-15.5) 12.2 g/dL (12.0-15.5) Hematocrit 41.5 % (36.0-47.0) 36.4 % (36.0-47.0) Mean Corpuscular Volume 96 fL (79-100) 95 fL (79-100) Mean Corpuscular Hemoglobin 32 pg (25-35) 32 pg (25-35) Mean Corpuscular Hemoglobin Concent 33 g/dL (31-37) 34 g/dL (31-37) Red Cell Distribution Width 14.1 % (11.5-14.5) 14.6 % (11.5-14.5) Platelet Count 219 x10^3/uL (140-400) 198 x10^3/uL (140-400) Neutrophils (%) (Auto) 68 % (31-73) 72 % (31-73) Lymphocytes (%) (Auto) 17 % (24-48) 12 % (24-48) Monocytes (%) (Auto) 11 % (0-9) 14 % (0-9) Eosinophils (%) (Auto) 3 % (0-3) 2 % (0-3) Basophils (%) (Auto) 1 % (0-3) 1 % (0-3) Neutrophils # (Auto) 4.7 x10^3uL (1.8-7.7) 5.6 x10^3uL (1.8-7.7) Lymphocytes # (Auto) 1.2 x10^3/uL (1.0-4.8) 0.9 x10^3/uL (1.0-4.8) Monocytes # (Auto) 0.8 x10^3/uL (0.0-1.1) 1.1 x10^3/uL (0.0-1.1) Eosinophils # (Auto) 0.2 x10^3/uL (0.0-0.7) 0.1 x10^3/uL (0.0-0.7) Basophils # (Auto) 0.1 x10^3/uL (0.0-0.2) 0.1 x10^3/uL (0.0-0.2) Sodium Level 137 mmol/L (136-145) 138 mmol/L (136-145) Potassium Level 4.4 mmol/L (3.5-5.1) 4.4 mmol/L (3.5-5.1) Chloride Level 105 mmol/L (98-107) 106 mmol/L (98-107) Carbon Dioxide Level 25 mmol/L (21-32) 21 mmol/L (21-32) Anion Gap 7 (6-14) 11 (6-14) Blood Urea Nitrogen 24 mg/dL (7-20) 25 mg/dL (7-20) Creatinine 2.4 mg/dL (0.6-1.0) 2.3 mg/dL (0.6-1.0) Estimated GFR (Cockcroft-Gault) 19.9 20.9 BUN/Creatinine Ratio 10 (6-20) Glucose Level 119 mg/dL (70-99) 126 mg/dL (70-99) Calcium Level 10.2 mg/dL (8.5-10.1) 9.5 mg/dL (8.5-10.1) Total Bilirubin 0.3 mg/dL (0.2-1.0) Aspartate Amino Transf (AST/SGOT) 16 U/L (15-37) Alanine Aminotransferase (ALT/SGPT) 19 U/L (14-59) Alkaline Phosphatase 84 U/L (46-116) Total Protein 7.0 g/dL (6.4-8.2) Albumin 3.2 g/dL (3.4-5.0) Albumin/Globulin Ratio 0.8 (1.0-1.7) Urine Collection Type U cath Urine Color Maxwell Urine Clarity Cloudy Urine pH 5.5 Urine Specific Marion 1.025 Urine Protein 100 mg/dL (NEG-TRACE) Urine Glucose (UA) Negative mg/dL (NEG) Urine Ketones (Stick) Negative mg/dL (NEG) Urine Blood Large (NEG) Urine Nitrite Positive (NEG) Urine Bilirubin Negative (NEG) Urine Urobilinogen Dipstick 1.0 mg/dL (0.2 mg/dL) Urine Leukocyte Esterase Large (NEG) Urine RBC 6-10 /HPF (0-2) Urine WBC >40 /HPF (0-4) Urine Squamous Epithelial Cells Occ /LPF Urine Bacteria Moderate /HPF (0-FEW) Glucose (Fingerstick) 155 mg/dL (70-99) Test 11/08/18 07:08 11/08/18 11:08 11/08/18 16:00 11/08/18 19:26 Glucose (Fingerstick) 112 mg/dL (70-99) 148 mg/dL (70-99) 125 mg/dL (70-99) 158 mg/dL (70-99) Laboratory Tests Test 11/08/18 03:50 2/10/19 07:08 11/08/18 11:08 11/08/18 16:00 White Blood Count 7.8 x10^3/uL (4.0-11.0) Red Blood Count 3.83 x10^6/uL (3.50-5.40) Hemoglobin 12.2 g/dL (12.0-15.5) Hematocrit 36.4 % (36.0-47.0) Mean Corpuscular Volume 95 fL (79-100) Mean Corpuscular Hemoglobin 32 pg (25-35) Mean Corpuscular Hemoglobin Concent 34 g/dL (31-37) Red Cell Distribution Width 14.6 % (11.5-14.5) Platelet Count 198 x10^3/uL (140-400) Neutrophils (%) (Auto) 72 % (31-73) Lymphocytes (%) (Auto) 12 % (24-48) Monocytes (%) (Auto) 14 % (0-9) Eosinophils (%) (Auto) 2 % (0-3) Basophils (%) (Auto) 1 % (0-3) Neutrophils # (Auto) 5.6 x10^3uL (1.8-7.7) Lymphocytes # (Auto) 0.9 x10^3/uL (1.0-4.8) Monocytes # (Auto) 1.1 x10^3/uL (0.0-1.1) Eosinophils # (Auto) 0.1 x10^3/uL (0.0-0.7) Basophils # (Auto) 0.1 x10^3/uL (0.0-0.2) Sodium Level 138 mmol/L (136-145) Potassium Level 4.4 mmol/L (3.5-5.1) Chloride Level 106 mmol/L (98-107) Carbon Dioxide Level 21 mmol/L (21-32) Anion Gap 11 (6-14) Blood Urea Nitrogen 25 mg/dL (7-20) Creatinine 2.3 mg/dL (0.6-1.0) Estimated GFR (Cockcroft-Gault) 20.9 Glucose Level 126 mg/dL (70-99) Calcium Level 9.5 mg/dL (8.5-10.1) Glucose (Fingerstick) 112 mg/dL (70-99) 148 mg/dL (70-99) 125 mg/dL (70-99) Test 11/08/18 19:26 Glucose (Fingerstick) 158 mg/dL (70-99) Assessment/Plan Assessment/Plan UTI: adjust antibiotics per urine culture results. Left hydronephrosis / hydroureter: unclear if due to ureter stone passage in last few days vs. chronic distal ureteral structure. No indication for acute urologic intervention. Recommend MAG3 renal scan with lasix washout as outpatient in a few weeks to further eval - we will arrange. If continued left hydro / renal obstruction, then might need ureteral stents vs ureteral reimplant in near future. ELIO ZENG MD Nov 08, 2018 20:53
[2018-11-08 23:00] VITALS: BP 145/58
[2018-11-09] VITALS (7 sets, daily range): BP systolic 113–143; BP diastolic 38–73
[2018-11-09] MEDS: LEVOTHYROXINE 150 MCG TABLET PO SCH (05:52)
[2018-11-09 06:32] LABS: CALCIUM 9.2 mg/dL (8.5-10.1); CREATININE 1.7 mg/dL (0.6-1.0); GFR 29.6
--- NOTE | 2018-11-09 08:34 | PDOC ---
Provider Note Provider Note creat down 1.7, feels better, no temp- urinse cult pending as she was on septra on admit- cont levoflox for now, rest same, uro consult noted TANA JACOBS MD Nov 09, 2018 08:34
[2018-11-09] MEDS: CHOLECALCIFEROL (VITAMIN D3) 1,000 UNIT TABLET PO SCH (08:47)
[2018-11-09] MEDS: ALPRAZolam 1 MG TABLET PO SCH ×2 (08:47→21:05)
[2018-11-09] MEDS: ASPIRIN CHEWABLE 81 MG TABLET. PO SCH (08:47)
[2018-11-09] MEDS: LACTOBACILLUS RHAMNOSUS GG 1 CAPSULE. PO SCH ×2 (08:47→21:05)
[2018-11-09] MEDS: MULTIVITAMIN with MINERAL TABLET. PO SCH (08:48)
[2018-11-09] MEDS: OXYBUTYNIN CHLORIDE 5 MG TABLET PO SCH ×3 (08:48→21:05)
[2018-11-09] MEDS: CARVEDILOL 6.25 MG TABLET. PO SCH ×2 (08:48→17:41)
[2018-11-09] MEDS: INSULIN GLARGINE 300 UNITS/3 ML INSULN.PEN. SQ SCH ×2 (08:54→21:13)
--- NOTE | 2018-11-09 10:40 | PDOC ---
RENÉE MUELLER [employer]CT [employer]ER 11/09/18 1040: SUBJECTIVE Subjective Doing ok, had a good night. No complaints OBJECTIVE Objective Physical Exam: General appearance: Alert and Oriented Head: Normocephalic, without obvious abnormality Eyes: conjunctivae/corneas clear. PERRL, EOM's intact. Fundi benign Back: negative, no CVA pain Lungs: Regular respirations, non labored breathing Abdomen: soft, non-tender, morbidly obese. . No masses, no organomegaly Vital Signs Vital Signs Date Time Temp Pulse Resp B/P (MAP) Pulse Ox O2 Delivery O2 Flow Rate FiO2 11/09/18 08:48 63 143/56 11/09/18 07:00 97.9 63 16 143/56 (85) 94 Room Air 97.9 11/09/18 02:17 98.5 74 18 128/62 (84) 97 Room Air 98.5 11/08/18 23:00 99.0 72 18 145/58 (87) 97 Room Air 99.0 11/08/18 20:12 20 Room Air 11/08/18 19:42 20 Room Air 11/08/18 19:40 Room Air 11/08/18 19:00 99.0 64 18 133/54 (80) 97 Room Air 99.0 11/08/18 17:40 69 128/64 11/08/18 16:09 95 Room Air 11/08/18 14:41 97.9 69 20 128/64 (85) 95 Room Air 97.9 11/08/18 14:30 95 Room Air 11/08/18 10:51 97.8 67 20 117/63 (81) 95 Room Air 97.8 I & O Intake and Output 11/09/18 07:01 Intake Total 900 ml Output Total 1200 ml Balance -300 ml Intake Oral 900 ml Output Urine Total 600 ml Stool Total 600 ml # Voids 1 PHYSICAL EXAM Physical Exam Physical Exam: General appearance: Alert and Oriented Head: Normocephalic, without obvious abnormality Eyes: conjunctivae/corneas clear. PERRL, EOM's intact. Fundi benign Back: negative, no CVA pain Lungs: Regular respirations, non labored breathing Abdomen: soft, non-tender, morbidly obese. . No masses, no organomegaly ASSESSMENT/PLAN Assessment/Plan Assessment/Plan UTI: Continue antibiotics per medical garnica. Left hydronephrosis / hydroureter: unclear if due to ureter stone passage in last few days vs. chronic distal ureteral structure. No indication for acute urologic intervention. However, we will see her as an outpatient for follow up. Recommend MAG3 renal scan with lasix washout as outpatient in a few weeks to further eval. If continued left hydro / renal obstruction, then might need ureteral stents vs ureteral reimplant in near future. An appointment has been arranged for patient to see Dr. Zeng on 11/26/18 at 1130 am. Appointment card given to patient. All questions answered. Problems: (1) UTI (lower urinary tract infection) COMMENT Lab Laboratory Tests Test 11/08/18 11:08 11/08/18 16:00 11/08/18 19:26 11/09/18 04:40 Glucose (Fingerstick) 148 mg/dL (70-99) 125 mg/dL (70-99) 158 mg/dL (70-99) Sodium Level 139 mmol/L (136-145) Potassium Level 4.0 mmol/L (3.5-5.1) Chloride Level 108 mmol/L (98-107) Carbon Dioxide Level 20 mmol/L (21-32) Anion Gap 11 (6-14) Blood Urea Nitrogen 20 mg/dL (7-20) Creatinine 1.7 mg/dL (0.6-1.0) Estimated GFR (Cockcroft-Gault) 29.6 Glucose Level 108 mg/dL (70-99) Calcium Level 9.2 mg/dL (8.5-10.1) Test 11/09/18 07:55 Glucose (Fingerstick) 118 mg/dL (70-99) ELIO ZENG MD 11/10/18 1720: ASSESSMENT/PLAN Assessment/Plan Agree with assessment and plan. RENÉE MUELLER APRN Nov 09, 2018 10:40 ELIO ZENG MD Nov 10, 2018 17:20
--- NOTE | 2018-11-09 12:25 | NUR ---
SW following pt for anticipated dc needs. Chart reviewed. Pt lives at home with spouse and does not have skilled needs. Pt on room air. No SW needs indicated at this time. SW will be available for any dc needs.
[2018-11-09] MEDS: fentaNYL PF VIAL 100 MCG/2 ML VIAL IV PRN ×2 (12:41→21:07)
[2018-11-10 03:00] VITALS: BP 149/68
[2018-11-10] MEDS: LEVOTHYROXINE 150 MCG TABLET PO SCH (05:23)
[2018-11-10 07:00] VITALS: BP 156/67
--- NOTE | 2018-11-10 08:06 | DISCH ---
DISCHARGE INSTRUCTIONS Condition on Discharge Condition on Discharge: Stable Activity After Discharge Activity Instructions for Disc: Activity as tolerated Exercise Instruction after Dis: Walk 15 min, 3 x per day, Progress as tolerated Weight Bearing Status after Di: As tolerated Diet after Discharge Diet after Discharge: Diabetic No Calorie Level Diet Texture: Regular Liquid Texture: Thin Liquid Swallowing Supervision: None needed Wound Incision Care Wound/Incision Care: No wound care needed Checks after Discharge Checks after discharge: Check blood press - daily, Check blood sugar, ac/hs Follow-Up Follow up with: as scheduled Treatment/Equipment after DC Adaptive Equipment Issued: None TANA JACOBS MD Nov 10, 2018 08:06
--- NOTE | 2018-11-10 08:10 | PDOC ---
Provider Note Provider Note [id number] TANA JACOBS MD Nov 10, 2018 08:10
--- NOTE | 2018-11-10 08:25 | DS ---
DATE OF DISCHARGE: 11/10/2018 HOSPITAL SUMMARY: A 72-year-old white female admitted with left flank pain and weakness and evidence of urinary tract infection based on her urine. Urine culture is pending. Blood cultures had no growth. Creatinine was up above her baseline at 2.4 at admission and came down to 1.7, which is more her baseline. Rest of chemistry profile, other labs including white count was unremarkable. CT scan showed evidence of moderate left hydronephrosis and hydroureter with no definite stone seen. She was treated with IV Levaquin and was afebrile, became less symptomatic and her renal function improved. She was seen by Dr. Spain in consultation and he plans on seeing her as an outpatient in 1-2 weeks and do a renal scan with Lasix washout to assess the possibility of a distal ureteral stone versus stricture that might require stenting or ureteral implant. She is comfortable to be followed as an outpatient at this point. FINAL DIAGNOSES: 1. Urinary tract infection. 2. Acute renal failure, reversible. OPERATIONS, PROCEDURES, COMPLICATIONS: None. CONSULTATIONS: Dr. Spain. DISPOSITION: She will take Cipro 250 mg twice a day for 1 more week. Rest of home meds remain the same. She will stay off the sulfa that she was on before. Office followup with Dr. Spain in 1-2 weeks with a renal scan as he recommended and I will see her on an as-needed basis. Prognosis is guarded given her multiple medical problems and comorbidities. TANA JACOBS MD DR: VIET/analisa JOB#: [id number] / [id number]
[2018-11-10] MEDS: ALPRAZolam 1 MG TABLET PO SCH (08:49)
[2018-11-10] MEDS: CHOLECALCIFEROL (VITAMIN D3) 1,000 UNIT TABLET PO SCH (08:49)
[2018-11-10] MEDS: OXYBUTYNIN CHLORIDE 5 MG TABLET PO SCH (08:49)
[2018-11-10] MEDS: MULTIVITAMIN with MINERAL TABLET. PO SCH (08:49)
[2018-11-10] MEDS: LACTOBACILLUS RHAMNOSUS GG 1 CAPSULE. PO SCH (08:50)
[2018-11-10] MEDS: CARVEDILOL 6.25 MG TABLET. PO SCH (08:50)
[2018-11-10] MEDS: ASPIRIN CHEWABLE 81 MG TABLET. PO SCH (08:50)
--- NOTE | 2018-11-10 09:03 | PDOC ---
RENÉE MUELLER [employer]IS[employer] 11/10/18 0902: SUBJECTIVE Subjective Pt had a good night, no complaints this am. OBJECTIVE Objective Physical Exam: General appearance: Alert and Oriented Head: Normocephalic, without obvious abnormality Eyes: conjunctivae/corneas clear. PERRL, EOM's intact. Fundi benign Lungs: Regular Respirations, non labored breathing. Abdomen: soft, obese, non-tender. Pelvic: deferred Vital Signs Vital Signs Date Time Temp Pulse Resp B/P (MAP) Pulse Ox O2 Delivery O2 Flow Rate FiO2 11/10/18 07:00 98.0 66 17 156/67 (96) 94 Room Air 98.0 11/10/18 03:00 98.0 63 16 149/68 (95) 95 Room Air 98.0 11/09/18 23:00 98.4 67 16 143/73 (96) 96 Room Air 98.4 11/09/18 21:40 16 96 Room Air 11/09/18 21:07 16 Room Air 11/09/18 20:32 Room Air 11/09/18 19:00 98.8 63 16 139/65 (89) 96 Room Air 98.8 11/09/18 17:41 72 129/71 11/09/18 15:00 98.3 72 18 129/71 (90) 95 Room Air 98.3 11/09/18 13:00 98.3 72 18 129/71 (90) 95 Room Air 98.3 11/09/18 12:41 96 Room Air 11/09/18 10:46 98.6 62 15 139/69 (92) 96 Room Air 98.6 I & O Intake and Output 11/10/18 06:59 Intake Total 500 ml Output Total 750 ml Balance -250 ml Intake Oral 500 ml Output Urine Total 600 ml Stool Total 150 ml PHYSICAL EXAM Physical Exam Physical Exam: General appearance: Alert and Oriented Head: Normocephalic, without obvious abnormality Eyes: conjunctivae/corneas clear. PERRL, EOM's intact. Fundi benign Lungs: Regular Respirations, non labored breathing. Abdomen: soft, obese, non-tender. Pelvic: deferred ASSESSMENT/PLAN Assessment/Plan UTI: Continue antibiotics per medical garnica. Left hydronephrosis / hydroureter: unclear if due to ureter stone passage in last few days vs. chronic distal ureteral structure. No indication for acute urologic intervention. However, we will see her as an outpatient for follow up. Recommend MAG3 renal scan with lasix washout as outpatient in a few weeks to further eval. If continued left hydro / renal obstruction, then might need ureteral stents vs ureteral reimplant in near future. [employer]visor continues to improve, down to 1.7 as of yesterday. An appointment has been arranged for patient to see Dr. Zeng on 11/26/18 at 1130 am. Appointment card given to patient. All questions answered. Ok to go home from a Urology perspective. Will sign off at this time, but please call with questions or changes in patient condition. Problems: (1) UTI (urinary tract infection) COMMENT Lab Laboratory Tests Test 11/09/18 11:27 11/09/18 16:12 11/09/18 20:31 11/10/18 07:15 Glucose (Fingerstick) 139 mg/dL (70-99) 113 mg/dL (70-99) 159 mg/dL (70-99) 94 mg/dL (70-99) ELIO ZENG MD 11/10/18 1722: ASSESSMENT/PLAN Assessment/Plan Agree with assessment and plan. RENÉE MUELLER APRN Nov 10, 2018 09:02 ELIO ZENG MD Nov 10, 2018 17:22
[2018-11-10] MEDS: INSULIN GLARGINE 300 UNITS/3 ML INSULN.PEN. SQ SCH (09:10)
[2018-11-10 11:00] VITALS: BP 145/62
--- NOTE | 2018-11-10 14:35 | NUR ---
Discharge Note: ROBERT LEE Discharge instructions and discharge home medications reviewed with Patient and a copy given. All questions have been answered and understanding verbalized. The following instructions and handouts were given: acute kidney injury, pyelonephritis, urinary tract infection, Ciprofloxacin. Discontinued lines and drains: peripheral IV lines removed, catheter intact. Patient discharged to home with self-care via WC to private vehicle. Pt. was present at time of discharge. Pt. transferred from Bed to and WC to car with help of walker. This nurse paged to Dr. Branch to clarify whether antibiotic was called into the pharmacy. Awaiting return page.
--- NOTE | 2018-11-10 16:30 | NUR ---
Dr. sanfordd back letting this nurse he had already called in pt. abx to her pharmacy.
[2018-12-07] MEDS ORDERED: CYANOCOBALAMIN (VITAMIN B-12) 1,000 MCG/ML VIAL IM SCH (09:00)
== END 2018-11-10 14:20 | disposition home or self-care (01) | DRG 690 ==
LOC: ER 12:49 → 5 NORTH 17:01
PROVIDERS: ADMIT Family Medicine; ATTEND Family Medicine
DX: N13.6 Pyonephrosis (principal); E11.40 Type 2 diabetes mellitus with diabetic neuropathy, unspecified; E11.42 Type 2 diabetes mellitus with diabetic polyneuropathy; E11.22 Type 2 diabetes mellitus with diabetic chronic kidney disease; I12.9 Hypertensive chronic kidney disease with stage 1 through stage 4 chronic kidney disease, or unspecified chronic kidney disease; N18.9 Chronic kidney disease, unspecified; M19.90 Unspecified osteoarthritis, unspecified site; E89.0 Postprocedural hypothyroidism; G89.29 Other chronic pain; N39.41 Urge incontinence; Z82.3 Family history of stroke; Z86.711 Personal history of pulmonary embolism; Z87.442 Personal history of urinary calculi; Z90.49 Acquired absence of other specified parts of digestive tract; Z90.710 Acquired absence of both cervix and uterus; Z79.4 Long term (current) use of insulin; Z88.8 Allergy status to other drugs, medicaments and biological substances; Z79.899 Other long term (current) drug therapy; N17.0 Acute kidney failure with tubular necrosis
CPT/HCPCS: 36415; 74176; 80048; 80053; 81001; 82962; 85025; 87040; 87086; 96372; 96374; J1170; J1815; J1956; J2405; J3010; J7030; 99285-25; G0378

== ENCOUNTER 2018-11-30 20:01 | Inpatient (IN) | payer BC ==
[~2018-11-30] VITALS: Ht 172.7 cm; Wt 114.5 kg
--- NOTE | 2018-11-30 20:34 | PHYS DOC ---
Past Medical History Past Medical History: Other Additional Past Medical Histor: colitis, sciatica, chronic back pain, neuropathy Past Surgical History: Colectomy Additional Past Surgical Histo: thyroidectomy, illeostomy with revision Alcohol Use: None Drug Use: None Adult General Chief Complaint Chief Complaint: URINARY RETENTION HPI HPI 72-year-old female presents to ER with complaints of left flank pain which radiates into left lower abdomen. Patient states she has been incontinent of urine past couple of days and has had gradual worsening of pain in her left flank area. Patient states she has had intermittent nausea denying any vomiting. Patient states she was in the hospital frequently last month with kidney stones and has had recurrent UTIs. Patient states she has ileostomy right lower abdomen denies any change in output or bloody drainage. He shouldn' t states she has had less of an appetite with decreased fluid intake. She reports generalized fatigue and weakness denies any chest pain, shortness of air , or flulike illness. Recheck of BP by this provider during initial exam 173/85- HR 85 as BP was elevated on triage. Review of Systems Review of Systems Constitutional: Denies fever or chills. Reports generalized fatigue Eyes: Denies change in visual acuity, redness, or eye pain [] HENT: Denies nasal congestion or sore throat [] Respiratory: Denies cough or shortness of breath [] Cardiovascular: No additional information not addressed in HPI [] GI: Denies vomiting. Denies change in ileostomy output in blood in drainage bag. Reports lt lower abd pain radiating from lt flank [] : Reports burning/dysuria with urinary incontinence. Denies hematuria Musculoskeletal: Denies joint pain. Reports lt flank pain Integument: Denies rash or skin lesions [] Neurologic: Denies headache, focal weakness or sensory changes [] Endocrine: Denies polyuria or polydipsia [] All other systems were reviewed and found to be within normal limits, except as documented in this note. Current Medications Current Medications Current Medications Medications (Trade) Dose Ordered Sig/Evan Start Time Stop Time Status Last Admin Dose Admin Ceftriaxone Sodium (Rocephin) 1 gm 1X ONCE 11/30/18 21:30 11/30/18 21:31 DC 11/30/18 22:12 1 GM Fentanyl Citrate (Fentanyl 2ml Vial) 25 mcg 1X ONCE 11/30/18 21:00 11/30/18 21:01 DC 11/30/18 22:11 25 MCG Ondansetron HCl (Zofran) 4 mg 1X ONCE 11/30/18 21:00 11/30/18 21:01 DC 11/30/18 22:10 4 MG Sodium Chloride 500 ml @ 500 mls/hr 1X ONCE 11/30/18 21:00 11/30/18 21:59 DC 11/30/18 22:12 500 MLS/HR Allergies Allergies Allergies Coded Allergies Type Severity Reaction Last Updated Verified Sulfa (Sulfonamide Antibiotics) Allergy Mild 11/30/18 Yes cephalexin Adverse Reaction Intermediate VERY ILL-N/V,DIARRHEA ETC. 01/07/18 Yes propoxyphene Adverse Reaction Intermediate nausea and vomiting 01/07/18 Yes Physical Exam Physical Exam Constitutional: Well developed, well nourished, no acute distress, non-toxic appearance. Fatigued appearance HENT: Normocephalic, atraumatic, mucous membranes pink/dry, no oral exudates, nose normal. [] Eyes: Pupils equal, conjunctiva normal, no discharge. [] Neck: Normal range of motion, no tenderness, supple, no stridor. [] Cardiovascular: Heart rate regular rhythm, no murmur [] Lungs & Thorax: Bilateral breath sounds clear to auscultation. Resp. equal/ nonlabored Abdomen: Bowel sounds normal, soft/obese, tender to palp. LLQ into lt lateral lower/lt flank area, no distention/rigidity no masses, no pulsatile masses. Rt lower abd ileostomy with erythema around site- non tender around site. No blood in drainage bag Skin: Warm, dry, no erythema, no rash. [] Back: Lt CVA tenderness- full ROM. No rt side CVA tenderness Extremities: No tenderness, no cyanosis, no clubbing, ROM intact, 1+ bilat. pedal edema non-pitting. 2+ bilat dorsalis pedis Neurologic: Alert and oriented X 3, normal motor function, normal sensory function, no focal deficits noted. [] Psychologic: Affect normal, judgement normal, mood normal. [] Current Patient Data Vital Signs Vital Signs Date Time Temp Pulse Resp B/P (MAP) Pulse Ox O2 Delivery O2 Flow Rate FiO2 11/30/18 22:09 75 98 11/30/18 20:01 98.2 16 166/129 (141) Room Air 98.2 Lab Values Laboratory Tests Test 11/30/18 20:40 11/30/18 21:00 Urine Collection Type U cath Urine Color Yellow Urine Clarity Turbid Urine pH 6.0 Urine Specific [place] 1.020 Urine Protein >=300 mg/dL (NEG-TRACE) Urine Glucose (UA) Negative mg/dL (NEG) Urine Ketones (Stick) Negative mg/dL (NEG) Urine Blood Large (NEG) Urine Nitrite Negative (NEG) Urine Bilirubin Negative (NEG) Urine Urobilinogen Dipstick 0.2 mg/dL (0.2 mg/dL) Urine Leukocyte Esterase Large (NEG) Urine RBC 6-10 /HPF (0-2) Urine WBC Tntc /HPF (0-4) Urine Squamous Epithelial Cells None /LPF Urine Bacteria Moderate /HPF (0-FEW) White Blood Count 6.4 x10^3/uL (4.0-11.0) Red Blood Count 4.06 x10^6/uL (3.50-5.40) Hemoglobin 13.2 g/dL (12.0-15.5) Hematocrit 39.2 % (36.0-47.0) Mean Corpuscular Volume 97 fL (79-100) Mean Corpuscular Hemoglobin 33 pg (25-35) Mean Corpuscular Hemoglobin Concent 34 g/dL (31-37) Red Cell Distribution Width 14.6 % (11.5-14.5) H Platelet Count 156 x10^3/uL (140-400) Neutrophils (%) (Auto) 56 % (31-73) Lymphocytes (%) (Auto) 27 % (24-48) Monocytes (%) (Auto) 14 % (0-9) H Eosinophils (%) (Auto) 2 % (0-3) Basophils (%) (Auto) 1 % (0-3) Neutrophils # (Auto) 3.6 x10^3uL (1.8-7.7) Lymphocytes # (Auto) 1.7 x10^3/uL (1.0-4.8) Monocytes # (Auto) 0.9 x10^3/uL (0.0-1.1) Eosinophils # (Auto) 0.2 x10^3/uL (0.0-0.7) Basophils # (Auto) 0.1 x10^3/uL (0.0-0.2) Sodium Level 142 mmol/L (136-145) Potassium Level 3.8 mmol/L (3.5-5.1) Chloride Level 104 mmol/L (98-107) Carbon Dioxide Level 23 mmol/L (21-32) Anion Gap 15 (6-14) H Blood Urea Nitrogen 20 mg/dL (7-20) Creatinine 1.9 mg/dL (0.6-1.0) H Estimated GFR (Cockcroft-Gault) 26.1 BUN/Creatinine Ratio 11 (6-20) Glucose Level 142 mg/dL (70-99) H Calcium Level 9.9 mg/dL (8.5-10.1) Total Bilirubin 0.8 mg/dL (0.2-1.0) Aspartate Amino Transferase (AST) 18 U/L (15-37) Alanine Aminotransferase (ALT) 17 U/L (14-59) Alkaline Phosphatase 89 U/L (46-116) Total Protein 7.0 g/dL (6.4-8.2) Albumin 3.2 g/dL (3.4-5.0) L Albumin/Globulin Ratio 0.8 (1.0-1.7) L Lipase 53 U/L (73-393) L Laboratory Tests 11/30/18 21:00 Laboratory Tests 11/30/18 21:00 EKG EKG [] Radiology/Procedures Radiology/Procedures PROCEDURE: CT ABDOMEN PELVIS WO CONTRAST CT Abdomen and Pelvis without contrast History: Left flank pain Technique: Noncontrast CT imaging was performed of the abdomen and pelvis. Multiplanar images are reviewed. Exposure: One or more of the following individualized dose reduction techniques were utilized for this examination: 1. Automated exposure control 2. Adjustment of the mA and/or kV according to patient size 3. Use of iterative reconstruction technique. Comparison: November 13, 2018 Findings: There are 5 right renal calculi, largest about 1.5 cm, other foci much smaller. There is atrophy of the left kidney with variable cortical thinning. There is 0.5 cm inferior right renal calculus. There is again some exophytic foci density of the right kidney with the largest about 1.4 cm, density measurements greater than simple cyst 29 Hounsfield units. There is now left ureteral stent, previously seen left hydronephrosis resolved. There is no right hydronephrosis. Some gas in the urinary bladder lumen is more likely related to instrumentation. No calculus is seen adjacent to the stent. There is no abnormality of the limited visualized lung bases. There is mitral annular calcification and coronary calcification. Accurate evaluation of abdominal visceral organs is limited without intravenous contrast. There is no obvious abnormality of the spleen, liver, or pancreas. There is no adrenal nodularity. Accurate evaluation of bowel is limited without oral contrast. There is no significant free air, free fluid, bowel dilatation. Bowel is not significantly dilated. There is lumbar levoscoliosis. There is advanced degenerative disc disease L4-5 and to a lesser degree L5-S1 and L1-2, interbody fusion L3-4 and L2-3. There is multilevel lumbar neural foramina compromise. The is also severe spinal stenosis L4-5, to lesser degree at L3-4 and L2-3. There is multilevel facet degenerative change. Impression: 1. There is now left ureteral stent, resolution of previously seen left hydronephrosis. There is a small left renal calculus, no calculus seen adjacent to the stent. Some gas in the urinary bladder lumen may be related to instrumentation. There are again right renal calculi. 2. There is again exophytic lesion of the inferior right kidney indeterminate for simple cyst, could be evaluated with nonemergent ultrasound. 3. There is coronary calcification. 4. There is multilevel lumbar spinal stenosis, neural foramina compromise, spondylosis, and degenerative disc disease. Electronically signed by: Iraida Alatorre MD (11/30/2018 9:47 PM) [facility] DICTATED and SIGNED BY: IRAIDA ALATORRE MD DATE: 11/30/182136 Course & Med Decision Making Course & Med Decision Making Pertinent Labs and Imaging studies reviewed. (See chart for details) 2305: Patient was evaluated in the ER for complaints of left flank pain and lower abdominal pain. Patient had been admitted last month for similar symptoms she reported and has recurrent UTIs. Patient states in the past couple of days she's had decreased appetite, less fluid intake, and urinary incontinence. Pt was found to have UTI and so was treated with IV Rocephin while in the ER and given IV fld bolus. Patient's Cr was 1.9 which is up from 1.4 on 11/16/18. WBCs NL at 6.4 no bands. Abd/pelvis CT with improvements from last imaging as hydronephrosis had resolved- with ureteral stent visualized in place. Pt was requesting admission for further care/eval- with UTI and renal function elevated call placed to pt's PCP- spoke with carton making machine operator physician Dr. Vyas and discussed pt's case and admit plan. Will consult pt's urologist with admit orders and repeat labs in morning. Dragon Disclaimer Dragon Disclaimer This electronic medical record was generated, in whole or in part, using a voice recognition dictation system. Departure Departure Impression: Primary Impression: UTI (urinary tract infection) Disposition: ADMITTED INPATIENT Admitting Physician: Tana Branch Condition: STABLE Referrals: TANA BRANCH MD (PCP) CUBA HAWK APRN Nov 30, 2018 20:34
[2018-11-30 20:47] LABS: BILIRUBIN,URINE NEGATIVE (NEG); CLARITY,URINE TURBID; COLOR,URINE YELLOW; NITRITE,URINE NEGATIVE (NEG); PROTEIN,URINE >=300 mg/dL (NEG-TRACE); UROBILINOGEN,URINE 0.2 mg/dL (0.2 mg/dL)
[2018-11-30 20:56] LABS: BACTERIA,URINE MODERATE /HPF (0-FEW); WBC,URINE TNTC /HPF (0-4)
[2018-11-30] MEDS ORDERED: ONDANSETRON PF 4 MG/2 ML VIAL. IV ONE (21:00)
[2018-11-30] MEDS ORDERED: IV NORMAL SALINE 500ML BAG 500 ML IV ONE (21:00)
[2018-11-30] MEDS ORDERED: fentaNYL PF VIAL 100 MCG/2 ML VIAL IV ONE (21:00)
[2018-11-30 21:17] LABS: BASO # 0.1 x10^3/uL (0.0-0.2); BASO % 1 % (0-3); EOS # 0.2 x10^3/uL (0.0-0.7); EOS % 2 % (0-3); HEMATOCRIT 39.2 % (36.0-47.0); HEMOGLOBIN 13.2 g/dL (12.0-15.5); LYMPH # 1.7 x10^3/uL (1.0-4.8); LYMPH % 27 % (24-48); MEAN CORPUSCULAR HEMOGLOBIN 33 pg (25-35); MEAN CORPUSCULAR HGB CONC 34 g/dL (31-37); MEAN CORPUSCULAR VOLUME 97 fL (79-100); MONO # 0.9 x10^3/uL (0.0-1.1); MONO % 14 % (0-9); NEUT # 3.6 x10^3uL (1.8-7.7); NEUT % 56 % (31-73); PLATELET COUNT 156 x10^3/uL (140-400); RED BLOOD COUNT 4.06 x10^6/uL (3.50-5.40); RED CELL DISTRIBUTION WIDTH 14.6 % (11.5-14.5); WHITE BLOOD COUNT 6.4 x10^3/uL (4.0-11.0)
[2018-11-30] MEDS ORDERED: cefTRIAXone IV Push 1 GM VIAL. IVP ONE (21:30)
[2018-11-30 21:31] LABS: CALCIUM 9.9 mg/dL (8.5-10.1); CREATININE 1.9 mg/dL (0.6-1.0); GFR 26.1; POTASSIUM 3.8 mmol/L (3.5-5.1)
[2018-11-30 21:40] LABS: ALBUMIN 3.2 g/dL (3.4-5.0); ALBUMIN/GLOBULIN RATIO 0.8 (1.0-1.7); TOTAL BILIRUBIN 0.8 mg/dL (0.2-1.0)
--- NOTE | 2018-11-30 21:50 | RAD ---
CT Abdomen and Pelvis without contrast History: Left flank pain Technique: Noncontrast CT imaging was performed of the abdomen and pelvis. Multiplanar images are reviewed. Exposure: One or more of the following individualized dose reduction techniques were utilized for this examination: 1. Automated exposure control 2. Adjustment of the mA and/or kV according to patient size 3. Use of iterative reconstruction technique. Comparison: November 13, 2018 Findings: There are 5 right renal calculi, largest about 1.5 cm, other foci much smaller. There is atrophy of the left kidney with variable cortical thinning. There is 0.5 cm inferior right renal calculus. There is again some exophytic foci density of the right kidney with the largest about 1.4 cm, density measurements greater than simple cyst 29 Hounsfield units. There is now left ureteral stent, previously seen left hydronephrosis resolved. There is no right hydronephrosis. Some gas in the urinary bladder lumen is more likely related to instrumentation. No calculus is seen adjacent to the stent. There is no abnormality of the limited visualized lung bases. There is mitral annular calcification and coronary calcification. Accurate evaluation of abdominal visceral organs is limited without intravenous contrast. There is no obvious abnormality of the spleen, liver, or pancreas. There is no adrenal nodularity. Accurate evaluation of bowel is limited without oral contrast. There is no significant free air, free fluid, bowel dilatation. Bowel is not significantly dilated. There is lumbar levoscoliosis. There is advanced degenerative disc disease L4-5 and to a lesser degree L5-S1 and L1-2, interbody fusion L3-4 and L2-3. There is multilevel lumbar neural foramina compromise. The is also severe spinal stenosis L4-5, to lesser degree at L3-4 and L2-3. There is multilevel facet degenerative change. Impression: 1. There is now left ureteral stent, resolution of previously seen left hydronephrosis. There is a small left renal calculus, no calculus seen adjacent to the stent. Some gas in the urinary bladder lumen may be related to instrumentation. There are again right renal calculi. 2. There is again exophytic lesion of the inferior right kidney indeterminate for simple cyst, could be evaluated with nonemergent ultrasound. 3. There is coronary calcification. 4. There is multilevel lumbar spinal stenosis, neural foramina compromise, spondylosis, and degenerative disc disease. Electronically signed by: Rashawn Ocampo MD (11/30/2018 9:47 PM) [facility]
--- NOTE | 2018-11-30 22:30 | NUR ---
Pt admitted from ER for UTI with complaints of burning and retention. Placed [place] per patients request. Admission assessment and history completed. Medication list not updated at this time. Pt does not have a current copy of her medication list. States that her medications are the same as when she was admitted a couple of weeks ago. Encouraged patient to make a medication list when she gets home and to carry it with her to all admissions. Educated patient on POC. Denies any needs or complaints at this time.
[2018-11-30] MEDS ORDERED: ONDANSETRON PF 4 MG/2 ML VIAL. IV PRN (23:30)
[2018-11-30] MEDS ORDERED: ACETAMINOPHEN 325 MG TABLET. PO PRN (23:30)
[2018-11-30] MEDS ORDERED: fentaNYL PF VIAL 100 MCG/2 ML VIAL IV PRN (23:30)
[2018-11-30 23:58] VITALS: BP 166/76
[2018-12-01] MEDS ORDERED: CHOL500016 PO (01:36)
[2018-12-01 02:56] VITALS: BP 148/72
[2018-12-01 05:02] LABS: BASO # 0.1 x10^3/uL (0.0-0.2); BASO % 1 % (0-3); EOS # 0.2 x10^3/uL (0.0-0.7); EOS % 3 % (0-3); HEMATOCRIT 36.9 % (36.0-47.0); HEMOGLOBIN 12.5 g/dL (12.0-15.5); LYMPH # 1.4 x10^3/uL (1.0-4.8); LYMPH % 26 % (24-48); MEAN CORPUSCULAR HEMOGLOBIN 33 pg (25-35); MEAN CORPUSCULAR HGB CONC 34 g/dL (31-37); MEAN CORPUSCULAR VOLUME 97 fL (79-100); MONO # 0.8 x10^3/uL (0.0-1.1); MONO % 15 % (0-9); NEUT % 55 % (31-73); PLATELET COUNT 136 x10^3/uL (140-400); RED CELL DISTRIBUTION WIDTH 14.6 % (11.5-14.5); WHITE BLOOD COUNT 5.4 x10^3/uL (4.0-11.0)
[2018-12-01 05:36] LABS: CALCIUM 9.7 mg/dL (8.5-10.1); CREATININE 1.6 mg/dL (0.6-1.0); GFR 31.8; POTASSIUM 3.7 mmol/L (3.5-5.1)
[2018-12-01 07:00] VITALS: BP 124/61
--- NOTE | 2018-12-01 07:57 | PDOC1 ---
H & P H&P Ms. Hough is a 72-year-old female with a past medical history of type 2 diabetes, chronic kidney disease stage III, hypertension, hypothyroidism, recurrent UTI, kidney stones, lumbar spinal stenosis, ulcerative colitis s/p ileostomy, who presented to the emergency room yesterday for concern of continued left flank pain, lower abdominal pain, urinary incontinence, urinary frequency, decreased appetite and decreased fluid intake. She has been admitted 4 times in the last month for similar issues and had a left ureteral stent placed last admission which helped resolve left hydronephrosis. Labs are generally unremarkable apart from INDIGO, Cr 1.9 down to 1.6 this AM (baseline 1.4) , and UA remarkable for leuk esterase, blood and WBCs. Of note, she has had a positive UCx for yeast most recently, which was treated with fluconazole and no bacterial pathogen was identified in all other cultures. ROS: Constitutional: Denies fever, fatigue, chills HEENT: Denies sore throat, vision changes Cardio: Denies chest pain, dyspnea with exertion, syncope, palpitations, edema Pulmonary: Denies shortness of breath, cough, wheezing GI: Denies nausea, vomiting, diarrhea, constipation Back: Admits left flank pain : Admits dysuria, frequency, urgency, incontinence Skin: Denies new lesions Neuro: Denies weakness, paresthesias PMH: As above. FAMILY HX: Father from heart attack, hypertension, emphysema. Mother had heart disease. Brother had a stroke. SOCIAL HX: Nonsmoker, no significant alcohol use. No drug use. SURGICAL HX: Recent L ureteral stent placement, oophorectomy, multiple hernia surgeries, ileostomy, appendectomy, tonsillectomy. MEDS: Reviewed and reconciled ALLERGIES: Reviewed PE: Alert, oriented, no acute distress EOMI, sclera non-icteric Neck supple RRR, no murmur CTAB, no wheezes, crackles or rhonchi Soft, NT, ND, normal bowel sounds, s/p ileostomy No edema, cyanosis. Normal capillary refill. 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
[2018-12-01] MEDS: IV NORMAL SALINE 1000ML BAG 1,000 ML IV SCH ×2 (08:24→18:46)
--- NOTE | 2018-12-01 08:57 | PDOC2 ---
RENÉE MUELLER SERVICES COORDINATOR 12/01/18 0856: UROLOGY CONSULT Date of Consult Date of Consult DATE: 12/01/18 TIME: 08:52 Identification/Chief Complaint Chief Complaint UTI Source Source: Caregiver, Chart review, Patient History of Present Illness Reason for Visit: This 72 year old female is well known to us. Patient was evaluated in the ER for complaints of left flank pain and lower abdominal pain and also had been admitted last month for similar symptoms she reported. She had stents placed by Dr. Gay of [facility] about one month ago, which she still has. She has a history of recurrent UTIs. Patient states in the past couple of days she's had decreased appetite, less fluid intake, and urinary incontinence and so she presented through the ER last night for these complaints. She was supposed to follow up with [facility] on the with Dr. Spain, but she missed this appointment due to family reasons. She is aware we have rescheduled her appointment for the with Dr. Spain of [facility] at [facility] location at 1130 am. She does intend to make this appointment. Today her biggest complaint is some dysuria and resting bladder pain 8/.10. She denies flank pain or belly pain and believes she is emptying her bladder well in spite of her pain. Her pain is currently 5/10, increases to 8/10 over bladder when pressure is applied or with examiner's touch. Past Medical History Cardiovascular: HTN Pulmonary: Pulmonary embolus CENTRAL NERVOUS SYSTEM: Other GI: Inflam bowel disease Heme/Onc: No pertinent hx Hepatobiliary: No pertinent hx Psych: No pertinent hx Musculoskeletal: Osteoarthritis Rheumatologic: No pertinent hx Infectious disease: No pertinent hx Renal/: Chronic renal insuff, Urinary Incontinence, Other Endocrine: Diabetes, Hypothyroidism Past Surgical History Past Surgical History: Appendectomy, Tonsillectomy, Hysterectomy, Colectomy, Other Family History Family History: Heart Disease, Stroke Social History ALCOHOL: none Drugs: None Lives: with Family Current Problem List Problems: (1) UTI (lower urinary tract infection) Current Medications Current Medications Current Medications Acetaminophen (Tylenol) 650 mg PRN Q4HRS PRN PO FEVER; Start 11/30/18 at 23:30; Stop 12/01/18 at 23:29 Ceftriaxone Sodium (Rocephin) 1 gm 1X ONCE IVP Last administered on 11/30/18at 22:12; Start 11/30/18 at 21:30; Stop 11/30/18 at 21:31; Status DC Ceftriaxone Sodium (Rocephin) 1 gm Q24H IVP ; Start 12/01/18 at 21:00 Fentanyl Citrate (Fentanyl 2ml Vial) 25 mcg 1X ONCE IV Last administered on 11/30/18at 22:11; Start 11/30/18 at 21:00; Stop 11/30/18 at 21:01; Status DC Fentanyl Citrate (Fentanyl 2ml Vial) 25 mcg PRN Q2HRS PRN IV SEVERE PAIN Last administered on 12/01/18at 03:30; Start 11/30/18 at 23:30; Stop 12/01/18 at 23:29 Ondansetron HCl (Zofran) 4 mg 1X ONCE IV Last administered on 11/30/18at 22:10; Start 11/30/18 at 21:00; Stop 11/30/18 at 21:01; Status DC Ondansetron HCl (Zofran) 4 mg PRN Q8HRS PRN IV NAUSEA/VOMITING 1ST CHOICE; Start 11/30/18 at 23:30; Stop 12/01/18 at 23:29 Sodium Chloride 500 ml @ 500 mls/hr 1X ONCE IV Last administered on 11/30/18 22:12; Start 11/30/18 at 21:00; Stop 11/30/18 at 21:59; Status DC Sodium Chloride 1,000 ml @ 100 mls/hr Q10H IV Last administered on 12/01/18at 08 :24; Start 12/01/18 at 08:00 Allergies Allergies: Coded Allergies: Sulfa (Sulfonamide Antibiotics) (Verified Allergy, Mild, 11/30/18) cephalexin (Verified Adverse Reaction, Intermediate, VERY ILL-N/V, DIARRHEA ETC., 01/07/18) STATED IT JUST MAKES ME FEEL SICK propoxyphene (Verified Adverse Reaction, Intermediate, nausea and vomiting , 01/07/18) ROS Review Of Systems: CONSTITUTIONAL: No fever or chills EYES: No recent changes SKIN: No rash or itching CARDIOVASCULAR: No chest pain, syncope, palpitations, or edema RESPIRATORY: No SOB or cough GASTROINTESTINAL: No nausea, vomiting or abdominal pain NEUROLOGICAL: No headaches or weakness ENDOCRINE: No cold or heat intolerance GENITOURINARY: + Dysuria from urination. MUSCULOSKELETAL: No back pain or joint pain LYMPHATICS: No enlarged lymph nodes PSYCHIATRIC: No anxiety or depression Physical Exam Physical Exam: General: Pleasant, no acute distress, well groomed Eyes: conjunctiva anicteric, eyes full range of motion ENT: moist oral mucosa, normal dentition Neck: Trachea midline, no masses Respiratory: unlabored breathing, not using accessory muscles Abdomen: tender over bladder/ lower abdomen. Non tender other areas. Soft, morbidly obese. Skin: no rashes or skin lesions on visualized skin Psych: normal mood, affect. Alert and oriented x 3. Vitals VITALS Vital Signs Date Time Temp Pulse Resp B/P (MAP) Pulse Ox O2 Delivery O2 Flow Rate FiO2 12/01/18 07:50 Room Air 12/01/18 07:00 98.4 88 18 124/61 (82) 96 98.4 Labs Labs Laboratory Tests Test 11/30/18 20:40 11/30/18 21:00 12/01/18 04:25 12/01/18 07:40 Urine Collection Type U cath Urine Color Yellow Urine Clarity Turbid Urine pH 6.0 Urine Specific [place] 1.020 Urine Protein >=300 mg/dL (NEG-TRACE) Urine Glucose (UA) Negative mg/dL (NEG) Urine Ketones (Stick) Negative mg/dL (NEG) Urine Blood Large (NEG) Urine Nitrite Negative (NEG) Urine Bilirubin Negative (NEG) Urine Urobilinogen Dipstick 0.2 mg/dL (0.2 mg/dL) Urine Leukocyte Esterase Large (NEG) Urine RBC 6-10 /HPF (0-2) Urine WBC Tntc /HPF (0-4) Urine Squamous Epithelial Cells None /LPF Urine Bacteria Moderate /HPF (0-FEW) White Blood Count 6.4 x10^3/uL (4.0-11.0) 5.4 x10^3/uL (4.0-11.0) Red Blood Count 4.06 x10^6/uL (3.50-5.40) 3.80 x10^6/uL (3.50-5.40) Hemoglobin 13.2 g/dL (12.0-15.5) 12.5 g/dL (12.0-15.5) Hematocrit 39.2 % (36.0-47.0) 36.9 % (36.0-47.0) Mean Corpuscular Volume 97 fL (79-100) 97 fL (79-100) Mean Corpuscular Hemoglobin 33 pg (25-35) 33 pg (25-35) Mean Corpuscular Hemoglobin Concent 34 g/dL (31-37) 34 g/dL (31-37) Red Cell Distribution Width 14.6 % (11.5-14.5) 14.6 % (11.5-14.5) Platelet Count 156 x10^3/uL (140-400) 136 x10^3/uL (140-400) Neutrophils (%) (Auto) 56 % (31-73) 55 % (31-73) Lymphocytes (%) (Auto) 27 % (24-48) 26 % (24-48) Monocytes (%) (Auto) 14 % (0-9) 15 % (0-9) Eosinophils (%) (Auto) 2 % (0-3) 3 % (0-3) Basophils (%) (Auto) 1 % (0-3) 1 % (0-3) Neutrophils # (Auto) 3.6 x10^3uL (1.8-7.7) 3.0 x10^3uL (1.8-7.7) Lymphocytes # (Auto) 1.7 x10^3/uL (1.0-4.8) 1.4 x10^3/uL (1.0-4.8) Monocytes # (Auto) 0.9 x10^3/uL (0.0-1.1) 0.8 x10^3/uL (0.0-1.1) Eosinophils # (Auto) 0.2 x10^3/uL (0.0-0.7) 0.2 x10^3/uL (0.0-0.7) Basophils # (Auto) 0.1 x10^3/uL (0.0-0.2) 0.1 x10^3/uL (0.0-0.2) Sodium Level 142 mmol/L (136-145) 143 mmol/L (136-145) Potassium Level 3.8 mmol/L (3.5-5.1) 3.7 mmol/L (3.5-5.1) Chloride Level 104 mmol/L (98-107) 106 mmol/L (98-107) Carbon Dioxide Level 23 mmol/L (21-32) 24 mmol/L (21-32) Anion Gap 15 (6-14) 13 (6-14) Blood Urea Nitrogen 20 mg/dL (7-20) 18 mg/dL (7-20) Creatinine 1.9 mg/dL (0.6-1.0) 1.6 mg/dL (0.6-1.0) Estimated GFR (Cockcroft-Gault) 26.1 31.8 BUN/Creatinine Ratio 11 (6-20) Glucose Level 142 mg/dL (70-99) 115 mg/dL (70-99) Calcium Level 9.9 mg/dL (8.5-10.1) 9.7 mg/dL (8.5-10.1) Total Bilirubin 0.8 mg/dL (0.2-1.0) Aspartate Amino Transf (AST/SGOT) 18 U/L (15-37) Alanine Aminotransferase (ALT/SGPT) 17 U/L (14-59) Alkaline Phosphatase 89 U/L (46-116) Total Protein 7.0 g/dL (6.4-8.2) Albumin 3.2 g/dL (3.4-5.0) Albumin/Globulin Ratio 0.8 (1.0-1.7) Lipase 53 U/L (73-393) Glucose (Fingerstick) 123 mg/dL (70-99) Laboratory Tests Test 11/30/18 20:40 11/30/18 21:00 12/01/18 04:25 12/01/18 07:40 Urine Collection Type U cath Urine Color Yellow Urine Clarity Turbid Urine pH 6.0 Urine Specific [place] 1.020 Urine Protein >=300 mg/dL (NEG-TRACE) Urine Glucose (UA) Negative mg/dL (NEG) Urine Ketones (Stick) Negative mg/dL (NEG) Urine Blood Large (NEG) Urine Nitrite Negative (NEG) Urine Bilirubin Negative (NEG) Urine Urobilinogen Dipstick 0.2 mg/dL (0.2 mg/dL) Urine Leukocyte Esterase Large (NEG) Urine RBC 6-10 /HPF (0-2) Urine WBC Tntc /HPF (0-4) Urine Squamous Epithelial Cells None /LPF Urine Bacteria Moderate /HPF (0-FEW) White Blood Count 6.4 x10^3/uL (4.0-11.0) 5.4 x10^3/uL (4.0-11.0) Red Blood Count 4.06 x10^6/uL (3.50-5.40) 3.80 x10^6/uL (3.50-5.40) Hemoglobin 13.2 g/dL (12.0-15.5) 12.5 g/dL (12.0-15.5) Hematocrit 39.2 % (36.0-47.0) 36.9 % (36.0-47.0) Mean Corpuscular Volume 97 fL (79-100) 97 fL (79-100) Mean Corpuscular Hemoglobin 33 pg (25-35) 33 pg (25-35) Mean Corpuscular Hemoglobin Concent 34 g/dL (31-37) 34 g/dL (31-37) Red Cell Distribution Width 14.6 % (11.5-14.5) 14.6 % (11.5-14.5) Platelet Count 156 x10^3/uL (140-400) 136 x10^3/uL (140-400) Neutrophils (%) (Auto) 56 % (31-73) 55 % (31-73) Lymphocytes (%) (Auto) 27 % (24-48) 26 % (24-48) Monocytes (%) (Auto) 14 % (0-9) 15 % (0-9) Eosinophils (%) (Auto) 2 % (0-3) 3 % (0-3) Basophils (%) (Auto) 1 % (0-3) 1 % (0-3) Neutrophils # (Auto) 3.6 x10^3uL (1.8-7.7) 3.0 x10^3uL (1.8-7.7) Lymphocytes # (Auto) 1.7 x10^3/uL (1.0-4.8) 1.4 x10^3/uL (1.0-4.8) Monocytes # (Auto) 0.9 x10^3/uL (0.0-1.1) 0.8 x10^3/uL (0.0-1.1) Eosinophils # (Auto) 0.2 x10^3/uL (0.0-0.7) 0.2 x10^3/uL (0.0-0.7) Basophils # (Auto) 0.1 x10^3/uL (0.0-0.2) 0.1 x10^3/uL (0.0-0.2) Sodium Level 142 mmol/L (136-145) 143 mmol/L (136-145) Potassium Level 3.8 mmol/L (3.5-5.1) 3.7 mmol/L (3.5-5.1) Chloride Level 104 mmol/L (98-107) 106 mmol/L (98-107) Carbon Dioxide Level 23 mmol/L (21-32) 24 mmol/L (21-32) Anion Gap 15 (6-14) 13 (6-14) Blood Urea Nitrogen 20 mg/dL (7-20) 18 mg/dL (7-20) Creatinine 1.9 mg/dL (0.6-1.0) 1.6 mg/dL (0.6-1.0) Estimated GFR (Cockcroft-Gault) 26.1 31.8 BUN/Creatinine Ratio 11 (6-20) Glucose Level 142 mg/dL (70-99) 115 mg/dL (70-99) Calcium Level 9.9 mg/dL (8.5-10.1) 9.7 mg/dL (8.5-10.1) Total Bilirubin 0.8 mg/dL (0.2-1.0) Aspartate Amino Transf (AST/SGOT) 18 U/L (15-37) Alanine Aminotransferase (ALT/SGPT) 17 U/L (14-59) Alkaline Phosphatase 89 U/L (46-116) Total Protein 7.0 g/dL (6.4-8.2) Albumin 3.2 g/dL (3.4-5.0) Albumin/Globulin Ratio 0.8 (1.0-1.7) Lipase 53 U/L (73-393) Glucose (Fingerstick) 123 mg/dL (70-99) Images Images 1. There is now left ureteral stent, resolution of previously seen left hydronephrosis. There is a small left renal calculus, no calculus seen adjacent to the stent. Some gas in the urinary bladder lumen may be related to instrumentation. There are again right renal calculi. 2. There is again exophytic lesion of the inferior right kidney indeterminate for simple cyst, could be evaluated with nonemergent ultrasound. 3. There is coronary calcification. 4. There is multilevel lumbar spinal stenosis, neural foramina compromise, spondylosis, and degenerative disc disease. Assessment/Plan Assessment/Plan Observe for now. Pt has a follow up appointment on 12/03/[address] Spain of [facility] at [facility] location. Pyridium 200 mg TID prn bladder pain/irritation/dysuria. Pt on Rocephin q 24, continue for now Continue IVF for [facility] 1.6 Await urine culture results. TANA SANTOS MD 12/01/18 1012: UROLOGY CONSULT Assessment/Plan Assessment/Plan I have seen patient and reviewed record and agree with plan of management. RENÉE MUELLER APRN Dec 01, 2018 08:56 TANA SANTOS MD Dec 01, 2018 10:12
[2018-12-01] MEDS ORDERED: PHENAZOPYRIDINE 200 MG TABLET. PO PRN (09:00)
[2018-12-01 10:32] VITALS: BP 114/66
--- NOTE | 2018-12-01 14:19 | NUR ---
SW following for discharge planning. Discussed with RN, pt is from home with . Possibility of procedure today or tomorrow. RN advised no SW needs at this time. SW will continue to follow.
[2018-12-01 15:00] VITALS: BP 132/61
[2018-12-01] MEDS ORDERED: ACETAMINOPHEN 325 MG TABLET. PO PRN (15:00)
[2018-12-01] MEDS ORDERED: ALPRAZolam 1 MG TABLET PO PRN (15:00)
[2018-12-01] MEDS: MULTIVITAMIN with MINERAL TABLET. PO SCH (15:26)
[2018-12-01] MEDS: ASPIRIN CHEWABLE 81 MG TABLET. PO SCH (15:26)
[2018-12-01] MEDS: LEVOTHYROXINE 150 MCG TABLET PO SCH (15:27)
[2018-12-01] MEDS: HYDROcodone/APAP 5/325MG 1 TAB TABLET PO PRN ×2 (15:27→20:47)
[2018-12-01 18:47] VITALS: BP 123/53
[2018-12-01] MEDS: CARVEDILOL 6.25 MG TABLET. PO SCH (18:49)
[2018-12-01] MEDS: OXYBUTYNIN CHLORIDE 5 MG TABLET PO SCH (20:46)
[2018-12-01] MEDS: TEMAZEPAM 15 MG CAPSULE PO PRN (20:46)
[2018-12-01] MEDS: cefTRIAXone IV Push 1 GM VIAL. IVP SCH (20:46)
[2018-12-01] MEDS: INSULIN GLARGINE 300 UNITS/3 ML INSULN.PEN. SQ SCH (22:19)
[2018-12-01 23:00] VITALS: BP 117/55
[2018-12-02] MEDS: HYDROcodone/APAP 5/325MG 1 TAB TABLET PO PRN ×4 (02:47→20:09)
[2018-12-02 03:00] VITALS: BP 105/47
[2018-12-02] MEDS: LEVOTHYROXINE 150 MCG TABLET PO SCH (06:10)
[2018-12-02] MEDS: IV NORMAL SALINE 1000ML BAG 1,000 ML IV SCH ×2 (06:11→20:08)
[2018-12-02 07:00] VITALS: BP 132/46
--- NOTE | 2018-12-02 08:35 | PDOC ---
SUBJECTIVE Subjective L flank pain resolved. Still having dysuria, lower abdominal pain when urinating. Pyridium doesn't help. OBJECTIVE Objective Reviewed. Vital Signs Vital Signs Date Time Temp Pulse Resp B/P (MAP) Pulse Ox O2 Delivery O2 Flow Rate FiO2 12/02/18 07:00 98.5 63 17 132/46 (74) 96 Room Air 98.5 12/02/18 03:47 20 Room Air 12/02/18 03:00 98.9 67 18 105/47 (66) 94 98.9 12/02/18 02:47 20 Room Air 12/01/18 23:00 98.0 70 18 117/55 (75) 95 98.0 12/01/18 20:47 20 Room Air 12/01/18 20:00 Room Air 12/01/18 18:49 80 123/53 12/01/18 18:47 98.8 80 26 123/53 (76) 96 Room Air 98.8 12/01/18 15:27 Room Air 12/01/18 15:00 97.8 89 20 132/61 (84) 96 Room Air 97.8 12/01/18 10:32 98.4 78 18 114/66 (82) 94 Room Air 98.4 I & O Intake and Output 12/02/18 07:00 Intake Total 3150 ml Output Total 750 ml Balance 2400 ml Intake Oral 1150 ml IV Total 2000 ml Output Urine Total 750 ml PHYSICAL EXAM Physical Exam Alert, oriented, no acute distress EOMI, sclera non-icteric Neck supple RRR, no murmur CTAB, no wheezes, crackles or rhonchi Soft, NT, ND, normal bowel sounds, s/p ileostomy No edema, cyanosis. Normal capillary refill. Calm, cooperative, mood/affect within normal limits ASSESSMENT/PLAN Assessment/Plan Left flank pain, improved Possible UTI, covering with Rocephin pending UCx Acute on Chronic kidney disease stage III, improving Urge/stress incontinence Type 2 diabetes Hypertension Hypothyroidism H/o Kidney stones, distal L ureteral stricture s/p stent placement Lumbar spinal stenosis Ulcerative colitis s/p ileostomy Urology following Await urine culture COMMENT Lab Laboratory Tests Test 12/01/18 11:35 12/01/18 16:18 12/01/18 22:11 12/02/18 07:46 Glucose (Fingerstick) 140 mg/dL (70-99) 139 mg/dL (70-99) 148 mg/dL (70-99) 135 mg/dL (70-99) MIGUEL LEONE MD Dec 02, 2018 08:35
[2018-12-02] MEDS: ASPIRIN CHEWABLE 81 MG TABLET. PO SCH (08:46)
[2018-12-02] MEDS: CARVEDILOL 6.25 MG TABLET. PO SCH ×2 (08:46→17:00)
[2018-12-02] MEDS: MULTIVITAMIN with MINERAL TABLET. PO SCH (08:46)
[2018-12-02] MEDS: OXYBUTYNIN CHLORIDE 5 MG TABLET PO SCH ×3 (08:46→20:08)
[2018-12-02] MEDS: INSULIN GLARGINE 300 UNITS/3 ML INSULN.PEN. SQ SCH ×2 (08:58→20:12)
[2018-12-02] MEDS: CHOLECALCIFEROL 5000 UNIT PO SCH (09:00)
--- NOTE | 2018-12-02 09:18 | PDOC ---
SUBJECTIVE Subjective Pt doing Ok. Pyridium didn't work for lower abd pain, but Tyler did. OBJECTIVE Objective Physical Exam: General appearance: Alert and Oriented Head: Normocephalic, without obvious abnormality Eyes: conjunctivae/corneas clear. PERRL, EOM's intact. Fundi benign Back:No CVA pain bilaterally. Lungs: Regular respirations, non labored breathing Abdomen: soft, non-tender, morbidly obese No masses, no organomegaly Vital Signs Vital Signs Date Time Temp Pulse Resp B/P (MAP) Pulse Ox O2 Delivery O2 Flow Rate FiO2 12/02/18 08:46 63 132/46 12/02/18 08:45 18 Room Air 12/02/18 07:00 98.5 63 17 132/46 (74) 96 Room Air 98.5 12/02/18 03:47 20 Room Air 12/02/18 03:00 98.9 67 18 105/47 (66) 94 98.9 12/02/18 02:47 20 Room Air 12/01/18 23:00 98.0 70 18 117/55 (75) 95 98.0 12/01/18 20:47 20 Room Air 12/01/18 20:00 Room Air 12/01/18 18:49 80 123/53 12/01/18 18:47 98.8 80 26 123/53 (76) 96 Room Air 98.8 12/01/18 15:27 Room Air 12/01/18 15:00 97.8 89 20 132/61 (84) 96 Room Air 97.8 12/01/18 10:32 98.4 78 18 114/66 (82) 94 Room Air 98.4 I & O Intake and Output 12/02/18 06:59 Intake Total 3150 ml Output Total 750 ml Balance 2400 ml Intake Oral 1150 ml IV Total 2000 ml Output Urine Total 750 ml PHYSICAL EXAM Physical Exam Physical Exam: General appearance: Alert and Oriented Head: Normocephalic, without obvious abnormality Eyes: conjunctivae/corneas clear. PERRL, EOM's intact. Fundi benign Back:No CVA pain bilaterally. Lungs: Regular respirations, non labored breathing Abdomen: soft, non-tender, morbidly obese No masses, no organomegaly ASSESSMENT/PLAN Assessment/Plan Observe for now. Pt has a follow up appointment on 3/7/[address] Spain of [facility] at [facility] location. Will reschedule if patient is still here tomorrow. Continue Tyler for discomfort Pt on Rocephin q 24, continue for now Continue IVF for [employer] 1.6 CMP today Await urine culture results. If urine culture comes in later today, Urology would be Ok with a late discharge. COMMENT Lab Laboratory Tests Test 12/01/18 11:35 12/01/18 16:18 12/01/18 22:11 12/02/18 07:46 Glucose (Fingerstick) 140 mg/dL (70-99) 139 mg/dL (70-99) 148 mg/dL (70-99) 135 mg/dL (70-99) RENÉE MUELLER APRN Dec 02, 2018 09:17
[2018-12-02 09:48] LABS: CALCIUM 9.1 mg/dL (8.5-10.1); CREATININE 1.5 mg/dL (0.6-1.0); GFR 34.2; POTASSIUM 3.9 mmol/L (3.5-5.1)
[2018-12-02 11:00] VITALS: BP 132/57
--- NOTE | 2018-12-02 12:47 | NUR ---
SW following. Discussed with RN, PT/OT ordered. SW met with pt to discuss discharge planning. Pt would like [facility], for PT/OT/RN and bath aide. Pt's is current with [facility]. Sandra from [facility] will assess pt for services. RN notified. SW will continue to follow.
[2018-12-02 15:00] VITALS: BP 91/49
[2018-12-02] MEDS: LACTOBACILLUS RHAMNOSUS GG 1 CAPSULE. PO SCH ×2 (15:26→20:08)
--- NOTE | 2018-12-02 16:15 | NUR ---
SW following. Pt has been accepted with [facility]. Home health orders needed upon discharge. RN notified.
[2018-12-02 19:00] VITALS: BP 108/49
[2018-12-02] MEDS: cefTRIAXone IV Push 1 GM VIAL. IVP SCH (20:08)
[2018-12-02] MEDS: TEMAZEPAM 15 MG CAPSULE PO PRN (20:08)
[2018-12-02 23:00] VITALS: BP 122/58
[2018-12-03] MEDS: IV NORMAL SALINE 1000ML BAG 1,000 ML IV SCH
[2018-12-03 03:00] VITALS: BP 124/55
[2018-12-03] MEDS: HYDROcodone/APAP 5/325MG 1 TAB TABLET PO PRN ×3 (03:01→13:36)
[2018-12-03] MEDS: LEVOTHYROXINE 150 MCG TABLET PO SCH (05:42)
[2018-12-03 07:00] VITALS: BP 132/46
[2018-12-03 07:11] LABS: CALCIUM 8.8 mg/dL (8.5-10.1); CREATININE 1.4 mg/dL (0.6-1.0); GFR 37.1; POTASSIUM 3.8 mmol/L (3.5-5.1)
--- NOTE | 2018-12-03 08:14 | DISCH ---
DISCHARGE WITH HOME HEALTH DISCHARGE INFORMATION: Final Diagnosis: Problems Medical Problems: (1) UTI (urinary tract infection) Status: Acute Condition on Discharge: Stable CODE STATUS: Code Status: Full HOME HEALTH: Face to Face: I certify this patient is under my care and that I, or a nurse practitioner or physician's veterinary assistant working with me, had a face to face encounter that meets the physician face to face encounter requirements with this patient on []. Physical Therapy For: Evalulation/Treatment Occupational Therapy For: Evaluation/Treatment POST DISCHARGE ORDERS: Activity Instructions for Disc: Activity as tolerated Weight Bearing Status after Di: As tolerated Wound/Incision Care: No wound care needed CHECKS AFTER DISCHARGE: Checks after discharge: Check blood press - daily, Check blood sugar, ac/hs TREATMENT/EQUIPMENT ORDERS: Adaptive Equipment Issued: None CERTIFICATION STATEMENT: Certification Statement: Certification Statement: Based on the above finding, I certify that this patient is confined to the home and needs intermittent retirement care, physical therapy and/or speech therapy, or continues to need occupational therapy.~ This patient is under my care, and I have initiated the establishment of the plan of care.~ This patient will be followed by myself or a community physician who will periodically review the plan of care. Home Meds Reported Medications Cholecalciferol (Vitamin D3) (VITAMIN D3) 5,000 Unit Tablet, 5000 UNIT PO DAILY for Vitamin d supplement, TAB 12/01/18 Alprazolam (ALPRAZOLAM) 1 Mg Tablet, 1 TAB PO BID for anxiety, #60 TAB 11/01/18 Solifenacin Succinate (VESICARE) 10 Mg Tablet, 1 TAB PO DAILY for urinary issues , #90 TAB 3 Refills 11/01/18 Aspirin (ASPIRIN) 81 Mg Tab.chew, 1 TAB PO DAILY, #30 TAB 3 Refills 01/06/18 Nph, Human Insulin Isophane (NOVOLIN N) 100 Unit/1 Ml Vial, 40 UNIT SQ BIDAC for hyperglycemia, VIAL 01/06/18 Carvedilol (CARVEDILOL ) 6.25 Mg Tablet, 1 TAB PO BID, #180 TAB 1 Refill 01/06/18 Levothyroxine Sodium (LEVOTHYROXINE SODIUM) 150 Mcg Tablet, 1 TAB PO DAILY, #30 TAB 5 Refills 01/06/18 Cyanocobalamin (Vitamin B-12) (CYANOCOBALAMIN INJECTION) 1,000 Mcg/1 Ml Vial, 1 ML IM QMONTH, #1 VIAL 07/22/16 Multivitamin (MULTIVITAMINS) 1 Each Tablet, 1 TAB PO DAILY, #30 TAB 2 Refills 11/07/14 Temazepam (TEMAZEPAM) 30 Mg Capsule, 30 MG PO HS PRN for INSOMNIA, CAP 11/07/14 MIGUEL LEONE MD Dec 03, 2018 08:14
--- NOTE | 2018-12-03 08:50 | PDOC ---
AMIRENÉE Graeme NEWS PRODUCTION SUPERVISOR 12/03/18 0850: SUBJECTIVE Subjective Patient doing well this am. No pain or problems overnight. OBJECTIVE Objective Physical Exam: General appearance: Alert and Oriented Head: Normocephalic, without obvious abnormality Eyes: conjunctivae/corneas clear. PERRL, EOM's intact. Fundi benign Back: negative, no CVA pain bilaterally Lungs: Regular respirations, non labored breathing Abdomen: soft, non-tender, obese Vital Signs Vital Signs Date Time Temp Pulse Resp B/P (MAP) Pulse Ox O2 Delivery O2 Flow Rate FiO2 12/03/18 07:00 97.9 63 17 132/46 (74) 97 Room Air 97.9 12/03/18 04:04 Room Air 12/03/18 03:01 Room Air 12/03/18 03:00 97.8 68 20 124/55 (78) 97 Room Air 97.8 12/02/18 23:00 98.8 71 20 122/58 (79) 98 98.8 12/02/18 20:09 Room Air 12/02/18 19:44 Room Air 12/02/18 19:00 98.6 67 18 108/49 (68) 96 Room Air 98.6 12/02/18 19:00 98.6 67 18 108/49 (68) 96 98.6 12/02/18 17:00 77 91/49 12/02/18 15:00 98.4 77 16 91/49 (63) 98 Room Air 98.4 12/02/18 14:20 18 96 12/02/18 13:20 18 96 Room Air 12/02/18 11:00 98.1 57 17 132/57 (82) 98 Room Air 98.1 I & O Intake and Output 12/03/18 07:00 Intake Total 1800 ml Output Total 1300 ml Balance 500 ml Intake Oral 800 ml IV Total 1000 ml Output Urine Total 1300 ml PHYSICAL EXAM Physical Exam Physical Exam: General appearance: Alert and Oriented Head: Normocephalic, without obvious abnormality Eyes: conjunctivae/corneas clear. PERRL, EOM's intact. Fundi benign Back: negative, no CVA pain bilaterally Lungs: Regular respirations, non labored breathing Abdomen: soft, non-tender, obese ASSESSMENT/PLAN Assessment/Plan Await culture results. Patient's appointment has been moved to 12/10/18 at 1140 am. Pt given appointment card. All questions answered. Patient may discharge home whenever medical team is ready/culture results are back. Problems: (1) UTI (urinary tract infection) COMMENT Lab Laboratory Tests Test 12/02/18 11:50 12/02/18 16:30 12/02/18 20:06 12/03/18 05:20 Glucose (Fingerstick) 161 mg/dL (70-99) 141 mg/dL (70-99) 147 mg/dL (70-99) Sodium Level 142 mmol/L (136-145) Potassium Level 3.8 mmol/L (3.5-5.1) Chloride Level 110 mmol/L (98-107) Carbon Dioxide Level 24 mmol/L (21-32) Anion Gap 8 (6-14) Blood Urea Nitrogen 17 mg/dL (7-20) Creatinine 1.4 mg/dL (0.6-1.0) Estimated GFR (Cockcroft-Gault) 37.1 Glucose Level 126 mg/dL (70-99) Calcium Level 8.8 mg/dL (8.5-10.1) ELIO ZENG MD 12/03/18 0932: ASSESSMENT/PLAN Assessment/Plan Agree with assessment and plan. RENÉE MUELLER APRN Dec 03, 2018 08:50 ELIO ZENG MD Dec 03, 2018 09:32
[2018-12-03] MEDS: CHOLECALCIFEROL 5000 UNIT PO SCH (09:00)
[2018-12-03] MEDS: OXYBUTYNIN CHLORIDE 5 MG TABLET PO SCH ×2 (09:01→13:35)
[2018-12-03] MEDS: MULTIVITAMIN with MINERAL TABLET. PO SCH (09:01)
[2018-12-03] MEDS: CARVEDILOL 6.25 MG TABLET. PO SCH (09:01)
[2018-12-03] MEDS: LACTOBACILLUS RHAMNOSUS GG 1 CAPSULE. PO SCH (09:02)
[2018-12-03] MEDS: ASPIRIN CHEWABLE 81 MG TABLET. PO SCH (09:02)
[2018-12-03] MEDS: INSULIN GLARGINE 300 UNITS/3 ML INSULN.PEN. SQ SCH (09:15)
[2018-12-03 11:00] VITALS: BP 136/58
--- NOTE | 2018-12-03 12:39 | PDOC3 ---
Discharge Summary Date of Admission: Dec 01, 2018 Date of Discharge: Dec 03, 2018 Follow-Up: Other (as directed by Urology) FINAL DIAGNOSIS Dysuria Urinary incontinence Brief Hospital Course Ms. Hough is a 72 year old female with a past medical history of type 2 diabetes, chronic kidney disease stage III, hypertension, hypothyroidism, recurrent UTI, kidney stones, lumbar spinal stenosis, ulcerative colitis s/p ileostomy, who presented to the emergency room for concern of left flank pain, lower abdominal pain, urinary incontinence, urinary frequency, decreased appetite and decreased fluid intake. She has been admitted 4 times in the last month for similar issues and had a left ureteral stent placed last admission which helped resolve left hydronephrosis. Labs were generally unremarkable apart from INDIGO, Cr 1.9 down to baseline (1.4) at discharge. UA was remarkable for leuk esterase, blood and WBCs but UCx was ultimately negative for pathogens. Urology followed and plans for pt to follow up in one week. No change in home medications. CONDITION AT DISCHARGE: Improved, Stable Discharge Medications Current Medications Ondansetron HCl (Zofran) 4 mg 1X ONCE IV Last administered on 11/30/18at 22:10; Start 11/30/18 at 21:00; Stop 11/30/18 at 21:01; Status DC Fentanyl Citrate (Fentanyl 2ml Vial) 25 mcg 1X ONCE IV Last administered on 11/30/18at 22:11; Start 11/30/18 at 21:00; Stop 11/30/18 at 21:01; Status DC Sodium Chloride 500 ml @ 500 mls/hr 1X ONCE IV Last administered on 11/30/18 22:12; Start 11/30/18 at 21:00; Stop 11/30/18 at 21:59; Status DC Ceftriaxone Sodium (Rocephin) 1 gm 1X ONCE IVP Last administered on 11/30/18 22:12; Start 11/30/18 at 21:30; Stop 11/30/18 at 21:31; Status DC Ondansetron HCl (Zofran) 4 mg PRN Q8HRS PRN IV NAUSEA/VOMITING 1ST CHOICE; Start 11/30/18 at 23:30; Stop 12/01/18 at 23:29; Status DC Fentanyl Citrate (Fentanyl 2ml Vial) 25 mcg PRN Q2HRS PRN IV SEVERE PAIN Last administered on 12/01/18at 03:30; Start 11/30/18 at 23:30; Stop 12/01/18 at 23:29; Status DC Acetaminophen (Tylenol) 650 mg PRN Q4HRS PRN PO FEVER; Start 11/30/18 at 23:30; Stop 12/01/18 at 23:29; Status DC Sodium Chloride 1,000 ml @ 100 mls/hr Q10H IV Last administered on 12/02/18 20 :08; Start 12/01/18 at 08:00; Stop 12/03/18 at 08:12; Status DC Ceftriaxone Sodium (Rocephin) 1 gm Q24H IVP Last administered on 12/02/18 20:08 ; Start 12/01/18 at 21:00 Phenazopyridine HCl (Pyridium) 200 mg PRN TID PRN PO URINARY PAIN Last administered on 12/01/18 09:46; Start 12/01/18 at 09:00 Acetaminophen (Tylenol) 650 mg PRN Q6HRS PRN PO MILD PAIN Last administered on 12/02/18 15:26; Start 12/01/18 at 15:00 Acetaminophen/ Hydrocodone Bitart (Lortab 5/325) 1 tab PRN Q4HRS PRN PO MODERATE PAIN Last administered on 12/03/18 09:12; Start 12/01/18 at 15:00 Alprazolam (Xanax) 1 mg PRN BID PRN PO anxiety; Start 12/01/18 at 15:00 Aspirin (Children'S Aspirin) 81 mg DAILY PO Last administered on 12/03/18 09:02 ; Start 12/01/18 at 16:00 Carvedilol (Coreg) 6.25 mg BIDWMEALS PO Last administered on 12/03/18 09:01; Start 12/01/18 at 17:00 Cyanocobalamin (Vitamin B-12) 1,000 mcg QMONTH IM ; Start 12/28/18 at 09:00 Temazepam (Restoril) 30 mg PRN QHS PRN PO INSOMNIA Last administered on 20:08; Start 12/01/18 at 15:00 Non-Formulary Medication (Cholecalciferol (Vitamin D3) (Vitamin D3)) 5,000 unit DAILY PO ; Start 12/02/18 at 09:00 Levothyroxine Sodium (Synthroid) 150 mcg DAILY06 PO Last administered on 05:42; Start 12/01/18 at 16:00 Multivitamins (Thera M Plus) 1 tab DAILY PO Last administered on 12/03/18 09:01 ; Start 12/01/18 at 16:00 Insulin Glargine (Lantus) 40 units BID SQ Last administered on 12/03/18 09:15; Start 12/01/18 at 21:00 Oxybutynin Chloride (Ditropan) 5 mg IIQ527 PO Last administered on 12/03/18 09: 01; Start 12/01/18 at 21:00 Lactobacillus Rhamnosus (Culturelle) 1 cap BID PO Last administered on 09:02; Start 12/02/18 at 14:00 Active Scripts Active Reported Vitamin D3 (Cholecalciferol (Vitamin D3)) 5,000 Unit Tablet 5,000 Unit PO DAILY Alprazolam 1 Mg Tablet 1 Tab PO BID Vesicare (Solifenacin Succinate) 10 Mg Tablet 1 Tab PO DAILY Aspirin 81 Mg Tab.chew 1 Tab PO DAILY Novolin N (Nph, Human Insulin Isophane) 100 Unit/1 Ml Vial 40 Unit SQ BIDAC Carvedilol (Carvedilol) 6.25 Mg Tablet 1 Tab PO BID Levothyroxine Sodium 150 Mcg Tablet 1 Tab PO DAILY Cyanocobalamin Injection (Cyanocobalamin (Vitamin B-12)) 1,000 Mcg/1 Ml Vial 1 Ml IM QMONTH Multivitamins (Multivitamin) 1 Each Tablet 1 Tab PO DAILY Temazepam 30 Mg Capsule 30 Mg PO HS PRN Vital Signs Vital Signs Date Time Temp Pulse Resp B/P (MAP) Pulse Ox O2 Delivery O2 Flow Rate FiO2 12/03/18 11:00 98.0 113 16 136/58 (84) 93 Room Air 98.0 Labs Laboratory Tests Test 12/01/18 16:18 12/01/18 22:11 12/02/18 07:46 12/02/18 08:35 Glucose (Fingerstick) 139 mg/dL (70-99) 148 mg/dL (70-99) 135 mg/dL (70-99) Sodium Level 143 mmol/L (136-145) Potassium Level 3.9 mmol/L (3.5-5.1) Chloride Level 108 mmol/L (98-107) Carbon Dioxide Level 24 mmol/L (21-32) Anion Gap 11 (6-14) Blood Urea Nitrogen 15 mg/dL (7-20) Creatinine 1.5 mg/dL (0.6-1.0) Estimated GFR (Cockcroft-Gault) 34.2 Glucose Level 160 mg/dL (70-99) Calcium Level 9.1 mg/dL (8.5-10.1) Test 12/02/18 11:50 12/02/18 16:30 12/02/18 20:06 12/03/18 05:20 Glucose (Fingerstick) 161 mg/dL (70-99) 141 mg/dL (70-99) 147 mg/dL (70-99) Sodium Level 142 mmol/L (136-145) Potassium Level 3.8 mmol/L (3.5-5.1) Chloride Level 110 mmol/L (98-107) Carbon Dioxide Level 24 mmol/L (21-32) Anion Gap 8 (6-14) Blood Urea Nitrogen 17 mg/dL (7-20) Creatinine 1.4 mg/dL (0.6-1.0) Estimated GFR (Cockcroft-Gault) 37.1 Glucose Level 126 mg/dL (70-99) Calcium Level 8.8 mg/dL (8.5-10.1) Test 12/03/18 07:30 12/03/18 11:16 Glucose (Fingerstick) 116 mg/dL (70-99) 174 mg/dL (70-99) Laboratory Tests Test 12/02/18 16:30 12/02/18 20:06 12/03/18 05:20 12/03/18 07:30 Glucose (Fingerstick) 141 mg/dL (70-99) 147 mg/dL (70-99) 116 mg/dL (70-99) Sodium Level 142 mmol/L (136-145) Potassium Level 3.8 mmol/L (3.5-5.1) Chloride Level 110 mmol/L (98-107) Carbon Dioxide Level 24 mmol/L (21-32) Anion Gap 8 (6-14) Blood Urea Nitrogen 17 mg/dL (7-20) Creatinine 1.4 mg/dL (0.6-1.0) Estimated GFR (Cockcroft-Gault) 37.1 Glucose Level 126 mg/dL (70-99) Calcium Level 8.8 mg/dL (8.5-10.1) Test 12/03/18 11:16 Glucose (Fingerstick) 174 mg/dL (70-99) Allergies Allergies Coded Allergies Type Severity Reaction Last Updated Verified Sulfa (Sulfonamide Antibiotics) Allergy Mild 11/30/18 Yes cephalexin Adverse Reaction Intermediate VERY ILL-N/V,DIARRHEA ETC. 01/07/18 Yes propoxyphene Adverse Reaction Intermediate nausea and vomiting 01/07/18 Yes Disposition/Orders: D/C to Home w/ HH MIGUEL LEONE MD Dec 03, 2018 12:39
--- NOTE | 2018-12-03 15:15 | NUR ---
Patient IV discontinued and removed; applied pressure and a bandaid without complications. Female catheter removed and brief applied. Patient discharge education given. Patient discharged to home, via private vehicle with her .
[2018-12-28] MEDS ORDERED: CYANOCOBALAMIN (VITAMIN B-12) 1,000 MCG/ML VIAL IM SCH (09:00)
== END 2018-12-03 15:15 | disposition home health service (06) | DRG 683 ==
LOC: ER 20:01 → 5 SOUTH 22:10
PROVIDERS: ADMIT Family Medicine; ATTEND Family Medicine
DX: N17.9 Acute kidney failure, unspecified (principal); N39.0 Urinary tract infection, site not specified; K51.90 Ulcerative colitis, unspecified, without complications; I12.9 Hypertensive chronic kidney disease with stage 1 through stage 4 chronic kidney disease, or unspecified chronic kidney disease; E11.22 Type 2 diabetes mellitus with diabetic chronic kidney disease; N18.3 Chronic kidney disease, stage 3 (moderate); N39.3 Stress incontinence (female) (male); N20.0 Calculus of kidney; N28.1 Cyst of kidney, acquired; E89.0 Postprocedural hypothyroidism; M47.9 Spondylosis, unspecified; M48.061 Spinal stenosis, lumbar region without neurogenic claudication; E11.42 Type 2 diabetes mellitus with diabetic polyneuropathy; G89.29 Other chronic pain; M19.90 Unspecified osteoarthritis, unspecified site; Z90.710 Acquired absence of both cervix and uterus; Z90.49 Acquired absence of other specified parts of digestive tract; Z93.2 Ileostomy status; Z88.1 Allergy status to other antibiotic agents; Z88.2 Allergy status to sulfonamides; Z88.8 Allergy status to other drugs, medicaments and biological substances; Z79.84 Long term (current) use of oral hypoglycemic drugs; Z86.711 Personal history of pulmonary embolism; Z87.440 Personal history of urinary (tract) infections; Z82.3 Family history of stroke
CPT/HCPCS: 36415; 74176; 80048; 80053; 81001; 82962; 83690; 85025; 87086; 96374; 96375; J0696; J1815; J2405; J3010; J7030; J7040; 99285-25

== ENCOUNTER 2018-12-20 20:52 | Emergency (ER) | payer BC ==
[~2018-12-20] VITALS: Ht 172.7 cm; Wt 117.9 kg
--- NOTE | 2018-12-20 21:20 | PHYS DOC ---
Past Medical History Past Medical History: Diabetes-Type II, Hypertension, Kidney Stone Additional Past Medical Histor: INCONTIENT, COLOSTOMY, ulcerative colitis Past Surgical History: Colectomy Additional Past Surgical Histo: thyroidectomy, illeostomy with revision Alcohol Use: Occasionally Drug Use: None Adult General Chief Complaint Chief Complaint: PAIN ON URINATION HPI HPI Patient is a 73 year old female with an extensive history of kidney stones as well as the abdominal surgery for ulcerative colitis resulting in a colostomy. She has had lower abdominal pain for the past 2 days. Increased pain with urination. No rash. No fever. Nothing seems to make the discomfort better. Tylenol has not improved the discomfort. Pain is moderate to severe. She reports that she needs Botox of the bladder for the pain, however when she last saw the urologist last week this was not provided.[] Review of Systems Review of Systems Constitutional: Denies fever or chills [] Eyes: Denies change in visual acuity, redness, or eye pain [] HENT: Denies nasal congestion or sore throat [] Respiratory: Denies cough or shortness of breath [] Cardiovascular: No chest pain or palpitations[] GI: Denies abdominal pain, nausea, vomiting, bloody stools or diarrhea [] : See history of present illness[] Musculoskeletal: Denies back pain or joint pain [] Integument: Denies rash or skin lesions [] Neurologic: Denies headache, focal weakness or sensory changes [] Endocrine: Denies polyuria or polydipsia [] All other systems were reviewed and found to be within normal limits, except as documented in this note. Current Medications Current Medications Current Medications Medications (Trade) Dose Ordered Sig/Evan Start Time Stop Time Status Last Admin Dose Admin Ciprofloxacin (Cipro) 500 mg 1X ONCE 12/20/18 23:00 12/20/18 23:01 Ketorolac Tromethamine (Toradol 15mg Vial) 15 mg 1X ONCE 12/20/18 21:45 12/20/18 21:46 DC 12/20/18 21:42 15 MG Phenazopyridine HCl (Pyridium) 100 mg 1X ONCE 12/20/18 22:30 12/20/18 22:31 DC 12/20/18 22:45 100 MG Allergies Allergies Allergies Coded Allergies Type Severity Reaction Last Updated Verified Sulfa (Sulfonamide Antibiotics) Allergy Mild 11/30/18 Yes cephalexin Adverse Reaction Intermediate VERY ILL-N/V,DIARRHEA ETC. 01/07/18 Yes propoxyphene Adverse Reaction Intermediate nausea and vomiting 01/07/18 Yes Physical Exam Physical Exam Constitutional: Well developed, well nourished, no acute distress, non-toxic appearance. [] HENT: Normocephalic, atraumatic, bilateral external ears normal, oropharynx moist, no oral exudates, nose normal. [] Eyes: PERRLA, EOMI, conjunctiva normal, no discharge. [] Neck: Normal range of motion, no tenderness, supple, no stridor. [] Cardiovascular:Heart rate regular rhythm, no murmur [] Lungs & Thorax: Bilateral breath sounds clear to auscultation [] Abdomen: Bowel sounds normal, soft, no tenderness, no masses, no pulsatile masses. No rash noted in the region, this exam was performed with reinsurance claim analyst present[] Skin: Warm, dry, no erythema, no rash. [] Back: No tenderness, no CVA tenderness. [] Extremities: No tenderness, no cyanosis, no clubbing, ROM intact, no edema. [] Neurologic: Alert and oriented X 3, normal motor function, normal sensory function, no focal deficits noted. [] Psychologic: Affect normal, judgement normal, mood normal. [] Current Patient Data Vital Signs Vital Signs Date Time Temp Pulse Resp B/P (MAP) Pulse Ox O2 Delivery O2 Flow Rate FiO2 12/20/18 22:47 77 18 128/59 (82) 97 12/20/18 21:00 98.1 Room Air 98.1 Lab Values Laboratory Tests Test 12/20/18 21:20 12/20/18 22:10 White Blood Count 6.6 x10^3/uL (4.0-11.0) Red Blood Count 3.94 x10^6/uL (3.50-5.40) Hemoglobin 12.8 g/dL (12.0-15.5) Hematocrit 37.8 % (36.0-47.0) Mean Corpuscular Volume 96 fL (79-100) Mean Corpuscular Hemoglobin 33 pg (25-35) Mean Corpuscular Hemoglobin Concent 34 g/dL (31-37) Red Cell Distribution Width 14.3 % (11.5-14.5) Platelet Count 228 x10^3/uL (140-400) Neutrophils (%) (Auto) 56 % (31-73) Lymphocytes (%) (Auto) 26 % (24-48) Monocytes (%) (Auto) 15 % (0-9) H Eosinophils (%) (Auto) 3 % (0-3) Basophils (%) (Auto) 0 % (0-3) Neutrophils # (Auto) 3.7 x10^3uL (1.8-7.7) Lymphocytes # (Auto) 1.7 x10^3/uL (1.0-4.8) Monocytes # (Auto) 1.0 x10^3/uL (0.0-1.1) Eosinophils # (Auto) 0.2 x10^3/uL (0.0-0.7) Basophils # (Auto) 0.0 x10^3/uL (0.0-0.2) Sodium Level 139 mmol/L (136-145) Potassium Level 3.5 mmol/L (3.5-5.1) Chloride Level 103 mmol/L (98-107) Carbon Dioxide Level 21 mmol/L (21-32) Anion Gap 15 (6-14) H Blood Urea Nitrogen 13 mg/dL (7-20) Creatinine 1.7 mg/dL (0.6-1.0) H Estimated GFR (Cockcroft-Gault) 29.5 Glucose Level 122 mg/dL (70-99) H Calcium Level 10.1 mg/dL (8.5-10.1) Urine Collection Type Unknown Urine Color Yellow Urine Clarity Turbid Urine pH 6.0 Urine Specific [place]co 1.010 Urine Protein 100 mg/dL (NEG-TRACE) Urine Glucose (UA) Negative mg/dL (NEG) Urine Ketones (Stick) Negative mg/dL (NEG) Urine Blood Large (NEG) Urine Nitrite Negative (NEG) Urine Bilirubin Negative (NEG) Urine Urobilinogen Dipstick 0.2 mg/dL (0.2 mg/dL) Urine Leukocyte Esterase Large (NEG) Urine RBC Occ /HPF (0-2) Urine WBC Tntc /HPF (0-4) Urine Squamous Epithelial Cells Mod /LPF Urine Bacteria Few /HPF (0-FEW) Laboratory Tests 12/20/18 21:20 Laboratory Tests 12/20/18 21:20 EKG EKG [] Radiology/Procedures Radiology/Procedures Abdominal and Pelvis CT, Without Contrast: History: Lower abdominal pain and left flank pain. Comparison: None. Procedure: Axial images are obtained of the abdomen and pelvis, without IV or oral contrast. CT Abdomen without Contrast: Findings: Evaluation of solid organs is limited without contrast. Evaluation of stomach and bowel is limited without oral contrast. There has been prior colectomy. There is a ileostomy on the right. The gallbladder is collapsed. There may be some gravel or small stones in the gallbladder but no wall thickening or surrounding inflammation. Liver: Normal. Spleen: Normal. Pancreas: Normal. Adrenal Glands: Normal. Kidneys: There is a double-J ureteral stent on the left which appears appropriately positioned. There is nonobstructive stones in the renal pelvises bilaterally. There are small lesions in the right kidney which are too small to characterize. There is no free air or free fluid. There is no lymphadenopathy. Impression: Please see CT Pelvis without Contrast. End Impression. CT Pelvis without Contrast: Findings: The urinary bladder is partially collapsed. There is moderate wall thickening with minimal surrounding inflammation. There is no free fluid. There is no lymphadenopathy. There is no pericolonic inflammation identified. There is a small ventral abdominal wall hernia containing a short segment of bowel without wall thickening or obstruction. Impression: 1. Wall thickening and inflammation involving the urinary bladder. Recommend correlation with urinary analysis. 2. Left-sided double-J ureter appears well positioned. 3. Status post total colectomy and ileostomy on the right.[] Course & Med Decision Making Course & Med Decision Making Pertinent Labs and Imaging studies reviewed. (See chart for details) ED course: Patient arrived, was placed in bed, and tolerated exam well. She was transported to and from [place] with any complications. After the return of the laboratory findings she was given initial dose of antibiotics while in the emergency department. She was given medicines for pain management however believe that her ultimate pain will not be managed until the infection is result. Findings were discussed with the patient who voiced understanding. All questions were answered. Patient was discharged in improved condition. Medical decision making: Patient appears to have urinary tract infection/ cystitis. No evidence of sepsis. No evidence of an obstruction or perforation. No evidence of other significant intra-abdominal pathology. No significant electrolyte abnormality[] Dragon Disclaimer Dragon Disclaimer This electronic medical record was generated, in whole or in part, using a voice recognition dictation system. Departure Departure Impression: Primary Impression: UTI (urinary tract infection) Disposition: 01 HOME, SELF-CARE Condition: IMPROVED Referrals: TANA JACOBS MD (PCP) Follow-up in 2 days Patient Instructions: Urinary Tract Infection Additional Instructions: Drink plenty of fluids. Follow-up with your regular doctor in 2 days. Return to the ER if worsening discomfort, unable to tolerate liquids, fever of more than 101, or any other concerns. Scripts Meloxicam (MELOXICAM) 7.5 Mg Tablet 7.5 MG PO DAILY, #20 TAB Prov: YOHAN OROZCO DO 12/20/18 Phenazopyridine Hcl (PYRIDIUM) 100 Mg Tablet 100 MG PO TID for 2 Days, #6 TAB Prov: YOHAN OROZCO DO 12/20/18 Ciprofloxacin Hcl (CIPRO) 250 Mg Tablet 1 TAB PO BID, #14 TAB Prov: YOHAN OROZCO DO 12/20/18 Problem Qualifiers Primary Impression: UTI (urinary tract infection) Urinary tract infection type: site unspecified Hematuria presence: without hematuria Qualified Codes: N39.0 - Urinary tract infection, site not specified YOHAN OROZCO DO Dec 20, 2018 21:20
[2018-12-20 21:35] LABS: BASO % 0 % (0-3); EOS # 0.2 x10^3/uL (0.0-0.7); EOS % 3 % (0-3); HEMATOCRIT 37.8 % (36.0-47.0); HEMOGLOBIN 12.8 g/dL (12.0-15.5); LYMPH # 1.7 x10^3/uL (1.0-4.8); LYMPH % 26 % (24-48); MEAN CORPUSCULAR HEMOGLOBIN 33 pg (25-35); MEAN CORPUSCULAR HGB CONC 34 g/dL (31-37); MEAN CORPUSCULAR VOLUME 96 fL (79-100); MONO % 15 % (0-9); NEUT # 3.7 x10^3uL (1.8-7.7); NEUT % 56 % (31-73); PLATELET COUNT 228 x10^3/uL (140-400); RED BLOOD COUNT 3.94 x10^6/uL (3.50-5.40); RED CELL DISTRIBUTION WIDTH 14.3 % (11.5-14.5); WHITE BLOOD COUNT 6.6 x10^3/uL (4.0-11.0)
[2018-12-20 21:43] LABS: CALCIUM 10.1 mg/dL (8.5-10.1); CREATININE 1.7 mg/dL (0.6-1.0); GFR 29.5; POTASSIUM 3.5 mmol/L (3.5-5.1)
[2018-12-20] MEDS ORDERED: KETOROLAC 15 MG/ML VIAL. IV ONE (21:45)
--- NOTE | 2018-12-20 21:51 | RAD ---
Abdominal and Pelvis CT, Without Contrast: History: Lower abdominal pain and left flank pain. Comparison: None. Procedure: Axial images are obtained of the abdomen and pelvis, without IV or oral contrast. CT Abdomen without Contrast: Findings: Evaluation of solid organs is limited without contrast. Evaluation of stomach and bowel is limited without oral contrast. There has been prior colectomy. There is a ileostomy on the right. The gallbladder is collapsed. There may be some gravel or small stones in the gallbladder but no wall thickening or surrounding inflammation. Liver: Normal. Spleen: Normal. Pancreas: Normal. Adrenal Glands: Normal. Kidneys: There is a double-J ureteral stent on the left which appears appropriately positioned. There is nonobstructive stones in the renal pelvises bilaterally. There are small lesions in the right kidney which are too small to characterize. There is no free air or free fluid. There is no lymphadenopathy. Impression: Please see CT Pelvis without Contrast. End Impression. CT Pelvis without Contrast: Findings: The urinary bladder is partially collapsed. There is moderate wall thickening with minimal surrounding inflammation. There is no free fluid. There is no lymphadenopathy. There is no pericolonic inflammation identified. There is a small ventral abdominal wall hernia containing a short segment of bowel without wall thickening or obstruction. Impression: 1. Wall thickening and inflammation involving the urinary bladder. Recommend correlation with urinary analysis. 2. Left-sided double-J ureter appears well positioned. 3. Status post total colectomy and ileostomy on the right. End impression PQRS Compliance Statement: One or more of the following individualized dose reduction techniques were utilized for this examination: 1. Automated exposure control 2. Adjustment of the mA and/or kV according to patient size 3. Use of iterative reconstruction technique Electronically signed by: Alan Herrera III, MD (12/20/2018 9:48 PM) [id number]
[2018-12-20 22:22] LABS: BILIRUBIN,URINE NEGATIVE (NEG); CLARITY,URINE TURBID; COLOR,URINE YELLOW; NITRITE,URINE NEGATIVE (NEG); PROTEIN,URINE 100 mg/dL (NEG-TRACE); UROBILINOGEN,URINE 0.2 mg/dL (0.2 mg/dL)
[2018-12-20] MEDS ORDERED: PHENAZOPYRIDINE 200 MG TABLET. PO ONE (22:30)
[2018-12-20 22:37] LABS: RBC,URINE OCC /HPF (0-2); WBC,URINE TNTC /HPF (0-4)
[2018-12-20 22:38] LABS: BACTERIA,URINE FEW /HPF (0-FEW); SQUAMOUS EPITHELIAL CELL,UR MOD /LPF
[2018-12-20] MEDS ORDERED: CIPROFLOXACIN HCL 250 MG TABLET. PO ONE (23:00)
[2018-12-20] MEDS ORDERED: CIPR250T30 PO (23:02)
[2018-12-20] MEDS ORDERED: PHEN100T82 PO (23:02)
[2018-12-20] MEDS ORDERED: MELO7.5T29 PO (23:02)
[2018-12-20 23:20] VITALS: BP 130/70
== END 2018-12-20 23:20 | disposition home or self-care (01) ==
LOC: ER 20:52
DX: N39.0 Urinary tract infection, site not specified (principal); I10 Essential (primary) hypertension; E11.9 Type 2 diabetes mellitus without complications; Z87.442 Personal history of urinary calculi; Z93.3 Colostomy status; Z93.2 Ileostomy status; Z88.1 Allergy status to other antibiotic agents; Z88.2 Allergy status to sulfonamides; Z88.8 Allergy status to other drugs, medicaments and biological substances
CPT/HCPCS: 36415; 74176; 80048; 81001; 85025; 96374; 99284; J1885

== ENCOUNTER 2019-01-03 02:15 | Inpatient (IN) | payer BC ==
[~2019-01-03] VITALS: Ht 172.7 cm; Wt 109.4 kg
[~2019-01-03 02:15] MED LIST changes: +CIPR250T30 PO; +MELO7.5T29 PO; +PHEN100T82 PO
--- NOTE | 2019-01-03 02:56 | PHYS DOC ---
Past Medical History Past Medical History: Diabetes-Type II, Hypertension, Kidney Stone Additional Past Medical Histor: INCONTIENT, COLOSTOMY, ulcerative colitis Past Surgical History: Colectomy Additional Past Surgical Histo: thyroidectomy, illeostomy with revision Alcohol Use: Occasionally Drug Use: None Adult General Chief Complaint Chief Complaint: ABDOMINAL PAIN HPI HPI Patient is a 73 year old female who presents with suprapubic pain. She states the pain has been going on for months however it's to the point now that she wants to be evaluated for. She describes it as sharp in nature with no radiation. It's a 10 out of 10. Patient also reports that she is been recently diagnosed with a spastic bladder and is supposed to get Botox in the next week. She also claims to be incontinent of urine, however she states her last urination was three days ago. Patient reports dysuria, but no hematuria. She denies fevers, chills, nausea, or vomiting.[] Review of Systems Review of Systems Constitutional: Denies fever or chills [] Eyes: Denies redness or eye pain [] HENT: Denies nasal congestion or sore throat [] Respiratory: Denies cough or shortness of breath [] Cardiovascular: Denies chest pain and palpitations [] GI: Reports suprapubic abdominal pain, denies nausea, vomiting, bloody stools or diarrhea [] : Reports dysuria, denies hematuria [] Musculoskeletal: Denies back pain or joint pain [] Integument: Denies rash or skin lesions [] Neurologic: Denies headache or sensory changes [] Complete systems were reviewed and found to be within normal limits, except as documented in this note. Current Medications Current Medications Current Medications Medications (Trade) Dose Ordered Sig/Evan Start Time Stop Time Status Last Admin Dose Admin Acetaminophen (Tylenol) 650 mg PRN Q4HRS PRN 01/03/19 03:45 01/04/19 03:44 UNV Dextrose (Dextrose 50%-Water Syringe) 12.5 gm PRN Q15MIN PRN 01/03/19 03:45 UNV Insulin Human Lispro (HumaLOG) 0-5 UNITS TIDWMEALS 01/03/19 08:00 UNV Ondansetron HCl (Zofran) 4 mg PRN Q8HRS PRN 01/03/19 03:45 01/04/19 03:44 UNV Phenazopyridine HCl (Pyridium) 200 mg 1X ONCE 01/03/19 03:45 01/03/19 03:46 DC 01/03/19 03:58 200 MG Piperacillin Sod/ Tazobactam Sod 3.375 gm/Sodium Chloride 50 ml @ 100 mls/hr 1X ONCE 01/03/19 04:00 01/03/19 04:29 01/03/19 03:56 100 MLS/HR Sodium Chloride 1,000 ml @ 1,000 mls/hr 1X ONCE 01/03/19 03:00 01/03/19 03:59 DC 01/03/19 03:01 1,000 MLS/HR Allergies Allergies Allergies Coded Allergies Type Severity Reaction Last Updated Verified Sulfa (Sulfonamide Antibiotics) Allergy Mild 11/30/18 Yes cephalexin Adverse Reaction Intermediate VERY ILL-N/V,DIARRHEA ETC. 01/07/18 Yes propoxyphene Adverse Reaction Intermediate nausea and vomiting 01/07/18 Yes Physical Exam Physical Exam Constitutional: No acute distress, non-toxic appearance. [] HENT: Normocephalic, atraumatic, bilateral external ears normal, oropharynx moist. [] Eyes: EOMI, conjunctiva normal, no discharge. [] Neck: Normal range of motion, no tenderness, no stridor. [] Cardiovascular: Heart rate regular rhythm, no murmur [] Lungs & Thorax: Bilateral breath sounds clear to auscultation [] Abdomen: Bowel sounds normal, soft, suprapubic tenderness. [] Skin: Warm, dry, no erythema. [] Back: No tenderness, no CVA tenderness. [] Extremities: No tenderness, ROM intact, no edema. [] Neurologic: Alert and oriented X 3, no focal deficits noted. [] Psychologic: Affect normal, mood normal. [] Current Patient Data Vital Signs Vital Signs Date Time Temp Pulse Resp B/P (MAP) Pulse Ox O2 Delivery O2 Flow Rate FiO2 01/03/19 03:28 77 20 149/69 (95) 98 01/03/19 02:25 98.2 Room Air 98.2 Lab Values Laboratory Tests Test 01/03/19 03:00 01/03/19 03:20 White Blood Count 6.5 x10^3/uL (4.0-11.0) Red Blood Count 3.88 x10^6/uL (3.50-5.40) Hemoglobin 12.9 g/dL (12.0-15.5) Hematocrit 37.5 % (36.0-47.0) Mean Corpuscular Volume 97 fL (79-100) Mean Corpuscular Hemoglobin 33 pg (25-35) Mean Corpuscular Hemoglobin Concent 34 g/dL (31-37) Red Cell Distribution Width 14.3 % (11.5-14.5) Platelet Count 200 x10^3/uL (140-400) Neutrophils (%) (Auto) 61 % (31-73) Lymphocytes (%) (Auto) 22 % (24-48) L Monocytes (%) (Auto) 13 % (0-9) H Eosinophils (%) (Auto) 3 % (0-3) Basophils (%) (Auto) 1 % (0-3) Neutrophils # (Auto) 3.9 x10^3uL (1.8-7.7) Lymphocytes # (Auto) 1.4 x10^3/uL (1.0-4.8) Monocytes # (Auto) 0.8 x10^3/uL (0.0-1.1) Eosinophils # (Auto) 0.2 x10^3/uL (0.0-0.7) Basophils # (Auto) 0.1 x10^3/uL (0.0-0.2) Prothrombin Time 14.6 SEC (11.7-14.0) H Prothrombin Time INR 1.2 (0.8-1.1) H PTT 30 SEC (24-38) Sodium Level 137 mmol/L (136-145) Potassium Level 3.9 mmol/L (3.5-5.1) Chloride Level 103 mmol/L (98-107) Carbon Dioxide Level 21 mmol/L (21-32) Anion Gap 13 (6-14) Blood Urea Nitrogen 25 mg/dL (7-20) H Creatinine 1.9 mg/dL (0.6-1.0) H Estimated GFR (Cockcroft-Gault) 26.0 BUN/Creatinine Ratio 13 (6-20) Glucose Level 159 mg/dL (70-99) H Lactic Acid Level 1.6 mmol/L (0.4-2.0) Calcium Level 10.3 mg/dL (8.5-10.1) H Magnesium Level 1.7 mg/dL (1.8-2.4) L Total Bilirubin 0.6 mg/dL (0.2-1.0) Aspartate Amino Transferase (AST) 22 U/L (15-37) Alanine Aminotransferase (ALT) 15 U/L (14-59) Alkaline Phosphatase 74 U/L (46-116) Creatine Kinase 44 U/L (26-192) Creatine Kinase MB (Mass) 0.6 ng/mL (0.0-3.6) Creatine Kinase MB Relative Index % (0-4) Troponin I Quantitative < 0.017 ng/mL (0.000-0.055) Total Protein 7.0 g/dL (6.4-8.2) Albumin 3.4 g/dL (3.4-5.0) Albumin/Globulin Ratio 0.9 (1.0-1.7) L Lipase 55 U/L (73-393) L Urine Collection Type U cath Urine Color Yellow Urine Clarity Turbid Urine pH 6.0 Urine Specific [place] 1.015 Urine Protein 100 mg/dL (NEG-TRACE) Urine Glucose (UA) Negative mg/dL (NEG) Urine Ketones (Stick) Negative mg/dL (NEG) Urine Blood Large (NEG) Urine Nitrite Negative (NEG) Urine Bilirubin Negative (NEG) Urine Urobilinogen Dipstick 0.2 mg/dL (0.2 mg/dL) Urine Leukocyte Esterase Large (NEG) Urine RBC 6-10 /HPF (0-2) Urine WBC Tntc /HPF (0-4) Urine Squamous Epithelial Cells None /LPF Urine Bacteria Moderate /HPF (0-FEW) Urine Mucus Slight /LPF Laboratory Tests 01/03/19 03:00 Laboratory Tests 01/03/19 03:00 EKG EKG [] Radiology/Procedures Radiology/Procedures [] Course & Med Decision Making Course & Med Decision Making 73-year-old female presenting to emergency Department via EMS for suprapubic abdominal pain. Patient states that she was recently diagnosed with a spastic bladder and was supposed to undergo Botox next week. Patient also informed me that she is incontinent of urine however believes her last urination was 3 days ago. Labs were obtained and posted to chart. Bladder scan performed. Symptomatic treatment provided with interval improvement. Patient was found to have UTI. Due to recent emergency room visit for similar symptoms and failed outpatient treatment patient has agreed to admission.Patient requiring admission for further evaluation and treatment. Discussed with (hospitalist ) who is in agreement with admission. Discussed findings and plan with patient and family, who acknowledge understanding and agreement. Dragon Disclaimer Dragon Disclaimer This electronic medical record was generated, in whole or in part, using a voice recognition dictation system. Departure Departure Impression: Primary Impression: UTI (urinary tract infection) Additional Impression: Failure of outpatient treatment Disposition: ADMITTED INPATIENT Admitting Physician: Isael Branch Condition: STABLE Referrals: ISAEL BRANCH MD (PCP) Problem Qualifiers Primary Impression: UTI (urinary tract infection) Urinary tract infection type: site unspecified Hematuria presence: without hematuria Qualified Codes: N39.0 - Urinary tract infection, site not specified CATRACHO CHRISTINA DO Jan 03, 2019 02:56
[2019-01-03] MEDS ORDERED: IV NORMAL SALINE 1000ML BAG 1,000 ML IV ONE (03:00)
[2019-01-03 03:21] LABS: PROTHROMBIN TIME PATIENT 14.6 SEC (11.7-14.0)
[2019-01-03 03:23] LABS: BASO # 0.1 x10^3/uL (0.0-0.2); BASO % 1 % (0-3); EOS # 0.2 x10^3/uL (0.0-0.7); EOS % 3 % (0-3); HEMATOCRIT 37.5 % (36.0-47.0); HEMOGLOBIN 12.9 g/dL (12.0-15.5); LYMPH # 1.4 x10^3/uL (1.0-4.8); LYMPH % 22 % (24-48); MEAN CORPUSCULAR HEMOGLOBIN 33 pg (25-35); MEAN CORPUSCULAR HGB CONC 34 g/dL (31-37); MEAN CORPUSCULAR VOLUME 97 fL (79-100); MONO # 0.8 x10^3/uL (0.0-1.1); MONO % 13 % (0-9); NEUT # 3.9 x10^3uL (1.8-7.7); NEUT % 61 % (31-73); PLATELET COUNT 200 x10^3/uL (140-400); RED BLOOD COUNT 3.88 x10^6/uL (3.50-5.40); RED CELL DISTRIBUTION WIDTH 14.3 % (11.5-14.5); WHITE BLOOD COUNT 6.5 x10^3/uL (4.0-11.0)
[2019-01-03 03:28] LABS: BILIRUBIN,URINE NEGATIVE (NEG); CLARITY,URINE TURBID; COLOR,URINE YELLOW; NITRITE,URINE NEGATIVE (NEG); PROTEIN,URINE 100 mg/dL (NEG-TRACE); UROBILINOGEN,URINE 0.2 mg/dL (0.2 mg/dL)
[2019-01-03 03:32] LABS: ALBUMIN 3.4 g/dL (3.4-5.0); ALBUMIN/GLOBULIN RATIO 0.9 (1.0-1.7); CALCIUM 10.3 mg/dL (8.5-10.1); CREATININE 1.9 mg/dL (0.6-1.0); MAGNESIUM 1.7 mg/dL (1.8-2.4); POTASSIUM 3.9 mmol/L (3.5-5.1); TOTAL BILIRUBIN 0.6 mg/dL (0.2-1.0)
[2019-01-03 03:36] LABS: BACTERIA,URINE MODERATE /HPF (0-FEW); WBC,URINE TNTC /HPF (0-4)
[2019-01-03 03:41] LABS: CREATINE KINASE 44 U/L (26-192)
[2019-01-03] MEDS ORDERED: PHENAZOPYRIDINE 200 MG TABLET. PO ONE (03:45)
[2019-01-03] MEDS ORDERED: ACETAMINOPHEN 325 MG TABLET. PO PRN (03:45)
[2019-01-03] MEDS ORDERED: DEXTROSE 50% 25 GM / 50ML DISP.SYRIN. IV PRN (03:45)
[2019-01-03] MEDS ORDERED: ONDANSETRON PF 4 MG/2 ML VIAL. IV PRN (03:45)
[2019-01-03] MEDS ORDERED: PIPERACILLIN/TAZOBACTAM 3.375 GM in IV NORMAL SALINE 50ML 50 ML IV ONE (04:00)
[2019-01-03 04:20] VITALS: BP 131/63
--- NOTE | 2019-01-03 07:49 | NUR ---
Right after shift change at 0730 patient decided to leave against medical advice. Dr. Branch paged. This RN and security escorted patient downstairs to 's car. IV line discontinued. Belongings with patient.
[2019-01-03] MEDS ORDERED: INSULIN LISPRO 300 UNITS/3 ML INSULN.PEN. SQ SCH (08:00)
== END 2019-01-03 07:51 | disposition left against medical advice (07) | DRG 690 ==
LOC: ER 02:15 → 5 NORTH 03:49
PROVIDERS: ADMIT Family Medicine; ATTEND Family Medicine
DX: N39.0 Urinary tract infection, site not specified (principal); E11.9 Type 2 diabetes mellitus without complications; E89.0 Postprocedural hypothyroidism; I10 Essential (primary) hypertension; Z53.21 Procedure and treatment not carried out due to patient leaving prior to being seen by health care provider; R32 Unspecified urinary incontinence; Z87.442 Personal history of urinary calculi
CPT/HCPCS: 36415; 80053; 81001; 82553; 83605; 83690; 83735; 84484; 85025; 85610; 85730; 87086; 96361; 96365; J1815; J2543; J7030; 99285-25

== ENCOUNTER 2019-01-05 14:41 | Emergency (ER) | payer BC ==
[~2019-01-05] VITALS: Ht 172.7 cm; Wt 113.4 kg
[2019-01-05 15:14] VITALS: BP 142/60
[2019-01-05 15:21] LABS: BILIRUBIN,URINE NEGATIVE (NEG); CLARITY,URINE TURBID; COLOR,URINE AMBER; NITRITE,URINE NEGATIVE (NEG); PROTEIN,URINE >=300 mg/dL (NEG-TRACE); UROBILINOGEN,URINE 0.2 mg/dL (0.2 mg/dL)
[2019-01-05 15:33] LABS: BACTERIA,URINE 0 /HPF (0-FEW); RBC,URINE FOBS /HPF (0-2); SQUAMOUS EPITHELIAL CELL,UR FEW /LPF; WBC,URINE TNTC /HPF (0-4)
[2019-01-05 16:04] LABS: BILIRUBIN,URINE NEGATIVE (NEG); CLARITY,URINE TURBID; COLOR,URINE AMBER; NITRITE,URINE NEGATIVE (NEG); PROTEIN,URINE >=300 mg/dL (NEG-TRACE); UROBILINOGEN,URINE 0.2 mg/dL (0.2 mg/dL)
--- NOTE | 2019-01-05 16:07 | PHYS DOC ---
Past Medical History Past Medical History: Diabetes-Type II, Hypertension, Kidney Stone Additional Past Medical Histor: INCONTIENT, COLOSTOMY, ulcerative colitis Past Surgical History: Colectomy Additional Past Surgical Histo: thyroidectomy, illeostomy with revision Alcohol Use: Occasionally Drug Use: None Adult General Chief Complaint Chief Complaint: FLANK PAIN [facility] HPI 73-year-old female presents to ER via POV for complaints of right flank pain and lower suprapubic pain which she is been evaluated in the ER multiple times for and chronic UTIs. Patient was in the ER 2 days ago and was admitted to the hospital as she has patient treatment for her UTI and patient reports soon after being admitted she left [facility] as she was not wanting to stay for treatment. She states she did see Dr. Vyas at her PCP's office since leaving [facility] and was provided with prescription for hydrocodone. Initially patient states she had 5 tablets in the prescription and she had ran out of those. Patient provided this provider with the prescription bottle and it was for #15 hydrocodone 5/325 and she was supposed to take half tablet every 8 hours and the prescription was filled on 01/01/19. She reports she hasn't been taking her medications as prescribed. She reports she did take a hydrocodone this morning but that was her last one. Patient states she has had no change in her symptoms since being evaluated in the ER 2 days ago. She denies fever, change in urinary pattern, or change in right flank pain. She reports she also has spoke with her urologist Dr. Gay and was told that she needed to have her urinary tract infection treated and completely resolved prior to having her Botox injections as planned for her spastic bladder. Patient voiced frustration as she is wanting the situation resolved. Review of Systems Review of Systems Constitutional: Denies fever or chills [] Eyes: Denies change in visual acuity, redness, or eye pain [] HENT: Denies nasal congestion or sore throat [] Respiratory: Denies cough or shortness of breath [] Cardiovascular: No additional information not addressed in HPI [] GI: Denies abdominal pain, nausea, vomiting, bloody stools or diarrhea [] : Denies hematuria. Reports urinary incontinence w/intermittent dysuria Musculoskeletal: Denies joint pain. Reports rt flank pain no acute change from previous exams. Integument: Denies rash or skin lesions [] Neurologic: Denies headache, focal weakness or sensory changes [] Endocrine: Denies polyuria or polydipsia [] All other systems were reviewed and found to be within normal limits, except as documented in this note. Current Medications Current Medications Current Medications Medications (Trade) Dose Ordered Sig/Evan Start Time Stop Time Status Last Admin Dose Admin Lidocaine (Lidoderm) 1 patch 1X ONCE 01/05/19 16:15 01/05/19 16:16 DC 01/05/19 16:17 1 PATCH Allergies Allergies Allergies Coded Allergies Type Severity Reaction Last Updated Verified Sulfa (Sulfonamide Antibiotics) Allergy Mild 11/30/18 Yes cephalexin Adverse Reaction Intermediate VERY ILL-N/V,DIARRHEA ETC. 01/07/18 Yes propoxyphene Adverse Reaction Intermediate nausea and vomiting 01/07/18 Yes Physical Exam Physical Exam Constitutional: Well developed, well nourished, no acute distress, non-toxic appearance. [] HENT: Normocephalic, atraumatic, oropharynx moist, nose normal. [] Eyes: Pupils equal, conjunctiva normal, no discharge. [] Neck: Normal range of motion, no tenderness, supple, no stridor. [] Cardiovascular: Heart rate regular rhythm, no murmur [] Lungs & Thorax: Bilateral breath sounds clear to auscultation. Resp. equal/ nonlabored Abdomen: Bowel sounds normal, soft/obese, no tenderness Skin: Warm, dry, no erythema, no rash. [] Back: No tenderness, no CVA tenderness. [] Extremities: No tenderness, no cyanosis, no clubbing, ROM intact, no edema. [] Neurologic: Alert and oriented X 3, normal motor function, normal sensory function, no focal deficits noted. [] Psychologic: Affect normal, judgement normal, mood normal. [] Current Patient Data Vital Signs Vital Signs Date Time Temp Pulse Resp B/P (MAP) Pulse Ox O2 Delivery O2 Flow Rate FiO2 01/05/19 15:14 98.2 90 20 142/60 (87) 98 Room Air 98.2 Lab Values Laboratory Tests Test 01/05/19 14:57 01/05/19 15:49 Urine Collection Type Unknown U cath Urine Color Giana Giana Urine Clarity Turbid Turbid Urine pH 6.0 6.0 Urine Specific [place] 1.015 1.020 Urine Protein >=300 mg/dL (NEG-TRACE) >=300 mg/dL (NEG-TRACE) Urine Glucose (UA) Negative mg/dL (NEG) Negative mg/dL (NEG) Urine Ketones (Stick) Negative mg/dL (NEG) Negative mg/dL (NEG) Urine Blood Large (NEG) Large (NEG) Urine Nitrite Negative (NEG) Negative (NEG) Urine Bilirubin Negative (NEG) Negative (NEG) Urine Urobilinogen Dipstick 0.2 mg/dL (0.2 mg/dL) 0.2 mg/dL (0.2 mg/dL) Urine Leukocyte Esterase Large (NEG) Large (NEG) Urine RBC Fobs /HPF (0-2) >40 /HPF (0-2) Urine WBC Tntc /HPF (0-4) Tntc /HPF (0-4) Urine Squamous Epithelial Cells Few /LPF Urine Bacteria 0 /HPF (0-FEW) Moderate /HPF (0-FEW) EKG EKG [] Radiology/Procedures Radiology/Procedures [] Course & Med Decision Making Course & Med Decision Making Pertinent Labs reviewed. (See chart for details) 1630: Patient had straight catheter UA obtained as she reported she had not used cleansing wipes prior to obtaining initial UA. Patient is uninterested in conversation regarding her test results. Patient at time during discussion made multiple comments and was unappreciative of care provided. Patient is rolling her eyes and grunting during conversation. UA results were discussed with patient with her at bedside. Discussed plans for home discharge as her symptoms are similar to prior ER and hospital visits. Patient is not wanting admission for further care. Lidoderm patch was applied while in the ER and will provide prescription for those for pain. Patient advised on use of over-the- counter Tylenol as directed on container. Advised patient she needs follow-up with her primary care physician and urologist for further care and reevaluation following completion of antibiotics-will prescribe seven-day course of Levaquin. Patient is in no visible distress at this time.Education provided on signs and symptoms to return to ER. Discharge instructions were discussed. Dragon Disclaimer Dragon Disclaimer This electronic medical record was generated, in whole or in part, using a voice recognition dictation system. Departure Departure Impression: Primary Impression: UTI (lower urinary tract infection) Additional Impression: Right flank pain Disposition: 01 HOME, SELF-CARE Condition: STABLE Referrals: TANA JACOBS MD (PCP) Patient Instructions: Flank Pain, Urinary Tract Infection Additional Instructions: Drink plenty of water. Tylenol as directed on container as needed for pain. You need to call your urologist and discuss your emergency department visit and follow-up at their office for further care and reevaluation. It is very important for you to be compliant with her medications to ensure proper treatment for your medical issues. Scripts Levofloxacin (LEVAQUIN) 500 Mg Tablet 1 TAB PO DAILY, #7 TAB 0 Refills Prov: CUBA HAWK APRN 01/05/19 Problem Qualifiers CUBA HAWK APRN Jan 05, 2019 16:07
[2019-01-05 16:09] LABS: RBC,URINE >40 /HPF (0-2); WBC,URINE TNTC /HPF (0-4)
[2019-01-05 16:11] LABS: BACTERIA,URINE MODERATE /HPF (0-FEW)
[2019-01-05] MEDS ORDERED: LIDOCAINE (700MG/PATCH) PATCH. TD ONE (16:15)
[2019-01-05] MEDS ORDERED: LEVO500T59 PO (16:46)
== END 2019-01-05 17:04 | disposition home or self-care (01) ==
LOC: ER 14:41
DX: N39.0 Urinary tract infection, site not specified (principal); E11.9 Type 2 diabetes mellitus without complications; I10 Essential (primary) hypertension; E89.0 Postprocedural hypothyroidism; Z87.442 Personal history of urinary calculi; Z93.3 Colostomy status; Z90.49 Acquired absence of other specified parts of digestive tract; Z88.2 Allergy status to sulfonamides; Z88.1 Allergy status to other antibiotic agents; Z88.8 Allergy status to other drugs, medicaments and biological substances
CPT/HCPCS: 81001; 87086; 99284

== ENCOUNTER 2019-04-27 01:27 | Emergency (ER) | payer BC ==
[~2019-04-27] VITALS: Ht 165.1 cm; Wt 113.4 kg
[~2019-04-27 01:27] MED LIST changes: +LEVO500T59 PO
[2019-04-27] MEDS ORDERED: HYDROcodone/APAP 5/325MG 1 TAB TABLET PO ONE (02:00)
[2019-04-27 02:31] LABS: BILIRUBIN,URINE NEGATIVE (NEG); CLARITY,URINE CLOUDY; COLOR,URINE YELLOW; NITRITE,URINE POSITIVE (NEG); PROTEIN,URINE 30 mg/dL (NEG-TRACE); UROBILINOGEN,URINE 0.2 mg/dL (0.2 mg/dL)
[2019-04-27 02:36] LABS: SQUAMOUS EPITHELIAL CELL,UR OCC /LPF
[2019-04-27 02:37] LABS: BACTERIA,URINE MANY /HPF (0-FEW); WBC,URINE TNTC /HPF (0-4)
[2019-04-27] MEDS ORDERED: NITR100C62 PO (03:05)
--- NOTE | 2019-04-27 03:05 | PHYS DOC ---
Past Medical History Past Medical History: Diabetes-Type II, Hypertension, Kidney Stone Additional Past Medical Histor: INCONTIENT, COLOSTOMY, ulcerative colitis Past Surgical History: Colectomy Additional Past Surgical Histo: thyroidectomy, illeostomy with revision Alcohol Use: Occasionally Drug Use: None Adult General Chief Complaint Chief Complaint: PAIN ON URINATION [facility] HPI Patient is a 73 year old [f__sex] who presents with [] Review of Systems Review of Systems Constitutional: Denies fever or chills [] Eyes: Denies change in visual acuity, redness, or eye pain [] HENT: Denies nasal congestion or sore throat [] Respiratory: Denies cough or shortness of breath [] Cardiovascular: No additional information not addressed in HPI [] GI: Denies abdominal pain, nausea, vomiting, bloody stools or diarrhea [] : Denies dysuria or hematuria [] Musculoskeletal: Denies back pain or joint pain [] Integument: Denies rash or skin lesions [] Neurologic: Denies headache, focal weakness or sensory changes [] Endocrine: Denies polyuria or polydipsia [] All other systems were reviewed and found to be within normal limits, except as documented in this note. Current Medications Current Medications Current Medications Medications (Trade) Dose Ordered Sig/Evan Start Time Stop Time Status Last Admin Dose Admin Acetaminophen/ Hydrocodone Bitart (Lortab 5/325) 1 tab 1X ONCE 04/27/19 02:00 04/27/19 02:02 DC 04/27/19 03:03 1 TAB Nitrofurantoin Macrocrystals (Macrobid) 100 mg 1X ONCE 04/27/19 03:15 04/27/19 03:16 UNV Allergies Allergies Allergies Coded Allergies Type Severity Reaction Last Updated Verified Sulfa (Sulfonamide Antibiotics) Allergy Mild 11/30/18 Yes cephalexin Adverse Reaction Intermediate VERY ILL-N/V,DIARRHEA ETC. 01/07/18 Yes propoxyphene Adverse Reaction Intermediate nausea and vomiting 01/07/18 Yes Physical Exam Physical Exam Constitutional: Well developed, well nourished, no acute distress, non-toxic appearance. [] HENT: Normocephalic, atraumatic, bilateral external ears normal, oropharynx moist, no oral exudates, nose normal. [] Eyes: PERRLA, EOMI, conjunctiva normal, no discharge. [] Neck: Normal range of motion, no tenderness, supple, no stridor. [] Cardiovascular:Heart rate regular rhythm, no murmur [] Lungs & Thorax: Bilateral breath sounds clear to auscultation [] Abdomen: Bowel sounds normal, soft, no tenderness, no masses, no pulsatile masses. [] Skin: Warm, dry, no erythema, no rash. [] Back: No tenderness, no CVA tenderness. [] Extremities: No tenderness, no cyanosis, no clubbing, ROM intact, no edema. [] Neurologic: Alert and oriented X 3, normal motor function, normal sensory function, no focal deficits noted. [] Psychologic: Affect normal, judgement normal, mood normal. [] Current Patient Data Vital Signs Vital Signs Date Time Temp Pulse Resp B/P (MAP) Pulse Ox O2 Delivery O2 Flow Rate FiO2 04/27/19 03:03 18 97 Room Air 04/27/19 01:34 98.3 65 137/63 (87) 98.3 Lab Values Laboratory Tests Test 04/27/19 02:22 Urine Collection Type U cath Urine Color Yellow Urine Clarity Cloudy Urine pH 6.0 Urine Specific [place] <=1.005 Urine Protein 30 mg/dL (NEG-TRACE) Urine Glucose (UA) Negative mg/dL (NEG) Urine Ketones (Stick) Negative mg/dL (NEG) Urine Blood Large (NEG) Urine Nitrite Positive (NEG) Urine Bilirubin Negative (NEG) Urine Urobilinogen Dipstick 0.2 mg/dL (0.2 mg/dL) Urine Leukocyte Esterase Large (NEG) Urine RBC 3-5 /HPF (0-2) Urine WBC Tntc /HPF (0-4) Urine Squamous Epithelial Cells Occ /LPF Urine Bacteria Many /HPF (0-FEW) EKG EKG [] Radiology/Procedures Radiology/Procedures [] Course & Med Decision Making Course & Med Decision Making Pertinent Labs and Imaging studies reviewed. (See chart for details) [] Dragon Disclaimer Dragon Disclaimer This electronic medical record was generated, in whole or in part, using a voice recognition dictation system. Departure Departure Impression: Primary Impression: Acute UTI Disposition: 01 HOME, SELF-CARE Condition: STABLE Referrals: TANA JACOBS MD (PCP) ALFONSO LEARY MD Patient Instructions: Urinary Tract Infection, [id number] Scripts Hydrocodone/Apap 5-325 (NORCO 5-325 TABLET) 1 Each Tablet 0.5-1 TAB PO PRN Q6HRS PRN for PAIN, #10 TAB 0 Refills Prov: CATRACHO CHRISTINA DO 04/27/19 Nitrofurantoin Monohyd/M-Cryst (MACROBID 100 MG CAPSULE) 100 Mg Capsule 1 CAP PO BID for UTI, #10 CAP Prov: CATRACHO CHRISTINA DO 04/27/19 CATRACHO CHRISTINA DO Apr 27, 2019 03:05
[2019-04-27] MEDS ORDERED: HYDR-3164 PO (03:07)
[2019-04-27] MEDS ORDERED: NITROFURANTOIN MONOHYD/M-CRYST 100 MG CAPSULE. PO ONE (03:30)
[2019-04-27 03:39] VITALS: BP 157/67
== END 2019-04-27 03:39 | disposition home or self-care (01) ==
LOC: ER 01:27
DX: N39.0 Urinary tract infection, site not specified (principal); E11.9 Type 2 diabetes mellitus without complications; I10 Essential (primary) hypertension; E89.0 Postprocedural hypothyroidism; Z93.3 Colostomy status; Z90.49 Acquired absence of other specified parts of digestive tract; Z87.442 Personal history of urinary calculi; Z88.2 Allergy status to sulfonamides; Z88.1 Allergy status to other antibiotic agents; Z88.8 Allergy status to other drugs, medicaments and biological substances
CPT/HCPCS: 81001; 87086; 99284

== ENCOUNTER 2019-05-19 02:44 | Emergency (ER) | payer BC ==
[~2019-05-19] VITALS: Ht 172.7 cm; Wt 105.7 kg
[~2019-05-19 02:44] MED LIST changes: +HYDR-3164 PO; +NITR100C62 PO
[2019-05-19 03:45] VITALS: BP 198/103
[2019-05-19 03:55] LABS: BILIRUBIN,URINE NEGATIVE (NEG); CLARITY,URINE TURBID; COLOR,URINE YELLOW; NITRITE,URINE NEGATIVE (NEG); PH,URINE 6.5; PROTEIN,URINE 100 mg/dL (NEG-TRACE); UROBILINOGEN,URINE 0.2 mg/dL (0.2 mg/dL)
[2019-05-19 04:25] LABS: BACTERIA,URINE MODERATE /HPF (0-FEW); SQUAMOUS EPITHELIAL CELL,UR FEW /LPF; WBC,URINE TNTC /HPF (0-4)
[2019-05-19] MEDS ORDERED: MORPHINE SULFATE 4 MG/ML VIAL. IM ONE (04:30)
[2019-05-19] MEDS ORDERED: NITR100C62 PO (04:55)
[2019-05-19] MEDS ORDERED: HYDR-3164 PO (04:55)
[2019-05-19] MEDS ORDERED: OXYB5TAB7 PO (04:55)
[2019-05-19] MEDS ORDERED: NITROFURANTOIN MONOHYD/M-CRYST 100 MG CAPSULE. PO ONE (05:00)
--- NOTE | 2019-05-19 05:08 | PHYS DOC ---
Past Medical History Past Medical History: Diabetes-Type II, Hypertension, Kidney Stone, UTI Additional Past Medical Histor: INCONTIENT, COLOSTOMY, ulcerative colitis Past Surgical History: Colectomy Additional Past Surgical Histo: thyroidectomy, illeostomy with revision Alcohol Use: Occasionally Drug Use: None Adult General Chief Complaint Chief Complaint: PAIN ON URINATION HPI HPI Patient is a 73 year old female presenting with chief complaint of bladder pains feels like spasms dysuria she is incontinent she also feels some pain in her left back there is no fever no vomiting. complicated urologic hx with stent placement kidney stones incontinence recurrent UTIs. just went to [facility], had eval by surgeon they are planning to take out stent at some point here early may she thinks had john for incontinence removed at [facility] on friday due to pain/spasms, got cefdinir, just finished that today i reviewed urine culture from 04/27 showing e facealis sens to macrobid and others see micro report Review of Systems Review of Systems Constitutional: Denies fever or chills [] Eyes: Denies change in visual acuity, redness, or eye pain [] HENT: Denies nasal congestion or sore throat [] Respiratory: Denies cough or shortness of breath [] Cardiovascular: No additional information not addressed in HPI [] GI: Deniesn, nausea, vomiting, bloody stools or diarrhea [] : Musculoskeletal: Integument: Denies rash or skin lesions [] Neurologic: Denies headache, focal weakness or sensory changes [] Endocrine: Denies polyuria or polydipsia [] All other systems were reviewed and found to be within normal limits, except as documented in this note. Current Medications Current Medications Current Medications Medications (Trade) Dose Ordered Sig/Evan Start Time Stop Time Status Last Admin Dose Admin Morphine Sulfate (Morphine Sulfate) 6 mg 1X ONCE 05/19/19 04:30 05/19/19 04:31 DC 05/19/19 04:54 6 MG Nitrofurantoin Macrocrystals (Macrobid) 100 mg 1X ONCE 05/19/19 05:00 05/19/19 05:01 05/19/19 04:54 100 MG Allergies Allergies Allergies Coded Allergies Type Severity Reaction Last Updated Verified Sulfa (Sulfonamide Antibiotics) Allergy Mild 11/30/18 Yes cephalexin Adverse Reaction Intermediate VERY ILL-N/V,DIARRHEA ETC. 01/07/18 Yes propoxyphene Adverse Reaction Intermediate nausea and vomiting 01/07/18 Yes Physical Exam Physical Exam Constitutional: Well developed, well nourished, no acute distress, non-toxic appearance. [] HENT: Normocephalic, atraumatic, bilateral external ears normal, oropharynx moist, no oral exudates, nose normal. [] Eyes: PERRLA, EOMI, conjunctiva normal, no discharge. [] Neck: Normal range of motion, no tenderness, supple, no stridor. [] Abdomen: Bowel sounds normal, soft, suprapubic tenderness, no masses, no pulsatile masses. [] Skin: Warm, dry, no erythema, no rash. [] Extremities: No tenderness, no cyanosis, no clubbing, ROM intact, no edema. [] Neurologic: Alert and oriented X 3, normal motor function, normal sensory function, no focal deficits noted. [] Psychologic: Affect normal, judgement normal, mood normal. [] Current Patient Data Vital Signs Vital Signs Date Time Temp Pulse Resp B/P (MAP) Pulse Ox O2 Delivery O2 Flow Rate FiO2 05/19/19 04:54 16 98 Room Air 05/19/19 03:45 98.5 85 198/103 (134) 98.5 Lab Values Laboratory Tests Test 05/19/19 03:35 Urine Collection Type Void Urine Color Yellow Urine Clarity Turbid Urine pH 6.5 Urine Specific [place] 1.010 Urine Protein 100 mg/dL (NEG-TRACE) Urine Glucose (UA) Negative mg/dL (NEG) Urine Ketones (Stick) Negative mg/dL (NEG) Urine Blood Large (NEG) Urine Nitrite Negative (NEG) Urine Bilirubin Negative (NEG) Urine Urobilinogen Dipstick 0.2 mg/dL (0.2 mg/dL) Urine Leukocyte Esterase Large (NEG) Urine RBC 1-2 /HPF (0-2) Urine WBC Tntc /HPF (0-4) Urine Squamous Epithelial Cells Few /LPF Urine Bacteria Moderate /HPF (0-FEW) EKG EKG [] Radiology/Procedures Radiology/Procedures [] Course & Med Decision Making Course & Med Decision Making Pertinent Labs and Imaging studies reviewed. 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 Due to her incontinence we did talk with her about fully catheter and we ultimately did agree to replace that due to the excoriated skin noted on nurse's physical examination. Urinalysis shows recurrent UTI reviewed the urine culture from April 27 given that I think Macrobid is a reas onable alternative as she has had no response to Cefdinir. At this point I have asked the patient to take pain medication as needed follow-up with primary care doctor for reevaluation next week she R he has an appointment return to the emergency room sooner for fever vomiting unable to take antibiotics for refractory symptoms she is agreeable to the plan. Discharged stable condition. [] Dragon Disclaimer Dragon Disclaimer This electronic medical record was generated, in whole or in part, using a voice recognition dictation system. Departure Departure Impression: Primary Impression: UTI (urinary tract infection) Disposition: HOME, SELF-CARE Condition: STABLE Referrals: TANA JACOBS MD (PCP) Patient Instructions: Urinary Tract Infection Scripts Oxybutynin Chloride (OXYBUTYNIN CHLORIDE) 5 Mg Tablet 1 TAB PO BID, #30 TAB 0 Refills Prov: LOLA MART MD 05/19/19 Hydrocodone/Apap 5-325 (NORCO 5-325 TABLET) 1 Each Tablet 1-2 EACH PO PRN Q6HRS PRN for PAIN, #15 as needed for pain Prov: LOLA MART MD 05/19/19 Nitrofurantoin Monohyd/M-Cryst (MACROBID 100 MG CAPSULE) 100 Mg Capsule 1 CAP PO BID, #20 CAP Prov: LOLA MART MD 05/19/19 LOLA MART MD May 19, 2019 05:08
== END 2019-05-19 05:10 | disposition home or self-care (01) ==
LOC: ER 02:44
DX: N39.0 Urinary tract infection, site not specified (principal); R11.2 Nausea with vomiting, unspecified; R19.7 Diarrhea, unspecified; K92.1 Melena; E11.9 Type 2 diabetes mellitus without complications; I10 Essential (primary) hypertension; E89.0 Postprocedural hypothyroidism; Z87.442 Personal history of urinary calculi; Z93.3 Colostomy status
CPT/HCPCS: 81001; 87086; 96372; 99284; J2270